=== PATIENT | male | born 1975 | race African-American/Black ===

== ENCOUNTER 2018-06-28 20:37 | Emergency (ER) | payer BC ==
[~2018-06-28] VITALS: Ht 182.9 cm; Wt 124.3 kg
[~2018-06-28 20:37] MED LIST: ASPI325T8 PO
[2018-06-28 20:49] VITALS: BP 143/85
[2018-06-28] MEDS ORDERED: DICL50TA4 PO (22:17)
[2018-06-28] MEDS ORDERED: METH4TAB2 PO (22:17)
--- NOTE | 2018-06-28 22:18 | PHYS DOC ---
Past Medical History Past Medical History: Hypertension Past Surgical History: No Surgical History Alcohol Use: None Drug Use: Marijuana Adult General Chief Complaint Chief Complaint: KNEE INJURY HPI HPI Patient is a 43 year old male with history of hypertension who presents today with complaints of generalized 9 out of 10 right knee pain that has been going on intermittently for 1 month. Patient states the pain is worse when he stands on his feet for long hours. Patient denies any known injury. Patient denies taking anything to help with this pain. He states occasionally after standing for too long his knee walking and sometimes become numb. He states the numbness goes away when he starts moving around. Patient denies any use of hormones, denies any recent hospitalization, denies any chest pain or shortness of breath , denies any recent surgery, denies any personal family history of DVTs. Review of Systems Review of Systems Constitutional: Denies fever or chills [] Eyes: Denies change in visual acuity, redness, or eye pain [] HENT: Denies nasal congestion or sore throat [] Respiratory: Denies cough or shortness of breath [] Cardiovascular: No additional information not addressed in HPI [] GI: Denies abdominal pain, nausea, vomiting, bloody stools or diarrhea [] : Denies dysuria or hematuria [] Musculoskeletal: Reports right knee pain Integument: Denies rash or skin lesions [] Neurologic: Denies headache, focal weakness or sensory changes [] All other systems were reviewed and found to be within normal limits, except as documented in this note. Allergies Allergies Allergies Coded Allergies Type Severity Reaction Last Updated Verified No Known Drug Allergies 01/04/14 No Physical Exam Physical Exam Constitutional: Well developed, well nourished, no acute distress, non-toxic appearance. [] HENT: Normocephalic, atraumatic, bilateral external ears normal, oropharynx moist, no oral exudates, nose normal. [] Eyes: PERRLA, EOMI, conjunctiva normal, no discharge. [] Neck: Normal range of motion, no tenderness, supple, no stridor. [] Cardiovascular:Heart rate regular rhythm, no murmur [] Lungs & Thorax: Bilateral breath sounds clear to auscultation [] Abdomen: Bowel sounds normal, soft, no tenderness, no masses, no pulsatile masses. [] Skin: Warm, dry, no erythema, no rash. [] Back: No tenderness, no CVA tenderness. [] Extremities: Overweight patient. Right knee with no obvious deformity, no tenderness on exam, full range of motion to the right knee, negative Wyatt sign negative Daisy's sign negative anterior-posterior drawer sign to the right lower extremity. +2 right pedal pulse. Cap refill less than 2 seconds the right lower extremity. Negative Homans sign to the right lower extremity. Neurologic: Alert and oriented X 3, normal motor function, normal sensory function, no focal deficits noted. [] Psychologic: Affect normal, judgement normal, mood normal. [] Current Patient Data Vital Signs Vital Signs Date Time Temp Pulse Resp B/P (MAP) Pulse Ox O2 Delivery O2 Flow Rate FiO2 06/28/18 20:49 97.8 69 14 143/85 (104) 98 Room Air 97.8 EKG EKG [] Radiology/Procedures Radiology/Procedures [] Course & Med Decision Making Course & Med Decision Making Pertinent Labs and Imaging studies reviewed. (See chart for details) This is a 43-year-old male patient presented to the ED today with right knee pain, no known injury. Right knee x-rays interpreted by Dr. Karissa arce negative for any acute findings. Patient was discharged with diclofenac and Medrol dosepak. Ice elevation encouraged. Provided orthopedic doctor for follow-up as an outpatient. Provided return precautions and discharged in stable condition. Staff Physician Addendum: I was working in the ER during the course of this patient's visit. I was available for consultation as needed, but I was not directly involved in the care of this patient. Dragon Disclaimer Dragon Disclaimer This electronic medical record was generated, in whole or in part, using a voice recognition dictation system. Departure Departure Impression: Primary Impression: Right knee pain Disposition: HOME, SELF-CARE Condition: STABLE Referrals: UNKNOWN PCP NAME (PCP) ASA CLARKE MD Patient Instructions: Knee Pain, [id number] Additional Instructions: You were evaluated in the emergency room for right knee pain. Ice elevate the extremity. Take the prescribed medications as ordered. Follow-up with the provided orthopedic doctor in the next 1 week if pain continues. Scripts Methylprednisolone (MEDROL) 4 Mg Tab.ds.pk 1 PKG PO UD, #1 PKG Prov: DARWIN SALGUERO [facility] 06/28/18 Diclofenac Sodium (DICLOFENAC SODIUM) 50 Mg Tablet.dr 1 TAB PO BID, #20 TAB 0 Refills Prov: DARWIN SALUGERO APRN 06/28/18 Problem Qualifiers Primary Impression: Right knee pain Chronicity: acute Qualified Codes: M25.561 - Pain in right knee JUNAIDDARWIN MATA DINA Jun 28, 2018 22:18 BEULAH CONDE MD Jun 29, 2018 05:01
--- NOTE | 2018-06-29 08:57 | RAD ---
Right knee radiograph 06/28/2018 9:07 PM INDICATION: Pain and swelling COMPARISON: None available TECHNIQUE: 4 views of the right knee are provided. FINDINGS: There is no acute fracture or dislocation. There is no knee joint effusion. Bone mineralization is within normal limits. Joint spaces are maintained. Regional soft tissues are within normal limits. There is no soft tissue gas or osseous erosion. IMPRESSION: No acute fracture or dislocation. Electronically signed by: Mia Arhculeta MD (06/29/2018 8:54 AM) [id number]
== END 2018-06-28 23:12 | disposition home or self-care (01) ==
LOC: ER 20:37
DX: M25.561 Pain in right knee (principal); R20.0 Anesthesia of skin; I10 Essential (primary) hypertension; E66.3 Overweight; Z68.37 Body mass index [BMI] 37.0-37.9, adult
CPT/HCPCS: 73564; 99284

== ENCOUNTER 2018-10-31 23:40 | Emergency (ER) | payer BC ==
[~2018-10-31] VITALS: Ht 182.9 cm; Wt 127.0 kg
[~2018-10-31 23:40] MED LIST changes: +DICL50TA4 PO; +METH4TAB2 PO
[2018-11-01 00:15] LABS: BILIRUBIN,URINE NEGATIVE (NEG); CLARITY,URINE CLEAR; COLOR,URINE YELLOW; NITRITE,URINE NEGATIVE (NEG); PH,URINE 5.5; PROTEIN,URINE NEGATIVE (NEG-TRACE)
[2018-11-01 00:19] LABS: BACTERIA,URINE 0 /HPF (0-FEW); RBC,URINE OCC /HPF (0-2); WBC,URINE OCC /HPF (0-4)
[2018-11-01 00:20] LABS: SQUAMOUS EPITHELIAL CELL,UR OCC /LPF
[2018-11-01 00:25] LABS: BASO # 0.1 x10^3/uL (0.0-0.2); BASO % 1 % (0-3); EOS # 0.3 x10^3/uL (0.0-0.7); EOS % 4 % (0-3); HEMATOCRIT 42.7 % (39.0-53.0); HEMOGLOBIN 14.9 g/dL (13.0-17.5); LYMPH # 3.1 x10^3/uL (1.0-4.8); LYMPH % 38 % (24-48); MEAN CORPUSCULAR HEMOGLOBIN 28 pg (25-35); MEAN CORPUSCULAR HGB CONC 35 g/dL (31-37); MEAN CORPUSCULAR VOLUME 80 fL (79-100); MONO # 0.7 x10^3/uL (0.0-1.1); MONO % 8 % (0-9); NEUT % 49 % (31-73); PLATELET COUNT 211 x10^3/uL (140-400); RED BLOOD COUNT 5.32 x10^6/uL (4.30-5.70); RED CELL DISTRIBUTION WIDTH 15.7 % (11.5-14.5); WHITE BLOOD COUNT 8.2 x10^3/uL (4.0-11.0)
[2018-11-01] MEDS: LABETALOL 20 MG/4 ML DISP.SYRIN. IVP ONE (00:28)
[2018-11-01] MEDS: ONDANSETRON PF 4 MG/2 ML VIAL. IV ONE (00:29)
[2018-11-01] MEDS: cloNIDine HCL 0.1 MG TABLET PO ONE ×2 (00:29→03:05)
[2018-11-01] MEDS: fentaNYL PF VIAL 100 MCG/2 ML VIAL IV ONE (00:29)
[2018-11-01 00:31] LABS: AMPHETAMINE/METHAMPHETAMINE POS (NEG); BARBITURATES NEG (NEG); BENZODIAZEPINES NEG (NEG); CANNABINOIDS POS (NEG); COCAINE NEG (NEG); METHADONE NEG (NEG); OPIATES NEG (NEG); PHENCYCLIDINE NEG (NEG)
[2018-11-01 00:34] LABS: CALCIUM 8.9 mg/dL (8.5-10.1); CREATININE 1.2 mg/dL (0.7-1.3); GFR 80.3; POTASSIUM 3.4 mmol/L (3.5-5.1)
[2018-11-01 00:40] LABS: ALBUMIN 3.6 g/dL (3.4-5.0); ALBUMIN/GLOBULIN RATIO 0.9 (1.0-1.7); TOTAL BILIRUBIN 0.4 mg/dL (0.2-1.0); TOTAL PROTEIN 7.4 g/dL (6.4-8.2)
[2018-11-01] MEDS ORDERED: CONTRAST GIVEN. MC PRN (01:00)
[2018-11-01] MEDS ORDERED: IOHEXOL 300 MG/ML 100ML VIAL. IV ONE (01:30)
--- NOTE | 2018-11-01 02:35 | RAD ---
INDICATION: LT FLANK PAIN,
LARGE BODY HABITUS, PT ATE LAST 6:30PM COMPARISON: None. TECHNIQUE: Grayscale and color ultrasound images obtained through the abdomen. FINDINGS: Aorta/IVC: Not well seen Pancreas: Not well seen Liver: There is some heterogenous echotexture. Gallbladder: There are some internal echoes seen within the gallbladder. Common Bile Duct: 5 mm Right Kidney: No hydronephrosis. Left Kidney: Difficult to visualize but no definite hydronephrosis. Echogenic focus within which could be from a calcification or nonobstructive stone. Spleen: Not well seen IMPRESSION: 1. Limited exam secondary to overlying structures obscuring. 2. There are some internal echoes suspected within the gallbladder. Could be sludge or small stones. 3. No common bile duct dilation. Electronically signed by: Leonardo Doe MD (11/01/2018 2:29 AM) [facility]
[2018-11-01] MEDS ORDERED: ONDA4TAB7 PO (03:10)
[2018-11-01] MEDS ORDERED: FAMO-63 PO (03:10)
[2018-11-01 03:16] VITALS: BP 136/90
--- NOTE | 2018-11-01 03:22 | PHYS DOC ---
Past Medical History Past Medical History: Hypertension Past Surgical History: No Surgical History Alcohol Use: None Drug Use: Marijuana Social History Narrative: Marijuana use daily, last use 2300 Adult General Chief Complaint Chief Complaint: FLANK PAIN HPI HPI Patient is a 43 year old male with history of hypertension, obstructive sleep apnea and polysubstance abuse who presents with epigastric pain, nausea and vomiting starting 1-2 hour prior to ED arrival. Patient with multiple episodes of emesis. Patient also pain rating to left shoulder. Denies fever, cough, hematemesis, coffee-ground emesis. No flank pain, back pain. No constipation or diarrhea. Patient acknowledges smoking marijuana and additional drug use. Denies current alcohol. Patient's blood pressure noted to be elevated at triage. 180/110. States she is compliant with his blood pressure medications. [] Review of Systems Review of Systems Review of systems as per history of present illness. All other review symptoms are negative. All other systems were reviewed and found to be within normal limits, except as documented in this note. Current Medications Current Medications Current Medications Medications (Trade) Dose Ordered Sig/Noah Start Time Stop Time Status Last Admin Dose Admin Clonidine HCl (Catapres) 0.2 mg 1X ONCE 11/01/18 02:00 11/01/18 02:01 DC 11/01/18 03:05 0.2 MG Fentanyl Citrate (Fentanyl 2ml Vial) 75 mcg 1X ONCE 11/01/18 00:30 11/01/18 00:31 DC 11/01/18 00:29 75 MCG Info (CONTRAST GIVEN -- Rx MONITORING) 1 each PRN DAILY PRN 11/01/18 01:00 11/03/18 00:59 Iohexol (Omnipaque 300 Mg/ml) 100 ml 1X ONCE 11/01/18 01:30 11/01/18 01:31 DC Labetalol HCl (Normodyne Iv Push) 20 mg 1X ONCE 11/01/18 00:30 11/01/18 00:31 DC 11/01/18 00:28 20 MG Ondansetron HCl (Zofran) 4 mg 1X ONCE 11/01/18 00:30 11/01/18 00:31 DC 11/01/18 00:29 4 MG Allergies Allergies Allergies Coded Allergies Type Severity Reaction Last Updated Verified No Known Drug Allergies 01/04/14 No Physical Exam Physical Exam Constitutional: Well developed, well nourished, moderate discomfort secondary to pain. Smells of her a lot of smoke.[] HENT: Normocephalic, atraumatic, bilateral external ears normal, oropharynx moist, no oral exudates, nose normal. [] Eyes: PERRLA, EOMI, conjunctiva hazy, injected. [] Neck: Normal range of motion, no tenderness, supple, no stridor. [] Cardiovascular:Heart rate regular rhythm, no murmur [] Lungs & Thorax: Bilateral breath sounds clear to auscultation [] Abdomen: Bowel sounds normal, soft, left upper quadrant/epigastric pain, tenderness, obesity compromising exam.. [] Skin: Warm, dry, no erythema, no rash. [] Back: No tenderness. [] Extremities: No tenderness, no edema. [] Neurologic: Alert and oriented X 3, normal motor function, normal sensory function, no focal deficits noted. [] Psychologic: Affect normal, judgement normal, mood normal. [] Current Patient Data Vital Signs Vital Signs Date Time Temp Pulse Resp B/P (MAP) Pulse Ox O2 Delivery O2 Flow Rate FiO2 11/01/18 03:05 71 157/100 11/01/18 02:46 95 Room Air 11/01/18 00:29 18 10/31/18 23:45 98.5 98.5 Lab Values Laboratory Tests Test 10/31/18 23:45 11/01/18 00:01 Urine Collection Type Unknown Urine Color Yellow Urine Clarity Clear Urine pH 5.5 Urine Specific [place] 1.020 Urine Protein Negative mg/dL (NEG-TRACE) Urine Glucose (UA) Negative mg/dL (NEG) Urine Ketones (Stick) Negative mg/dL (NEG) Urine Blood Negative (NEG) Urine Nitrite Negative (NEG) Urine Bilirubin Negative (NEG) Urine Urobilinogen Dipstick 1.0 mg/dL (0.2 mg/dL) Urine Leukocyte Esterase Negative (NEG) Urine RBC Occ /HPF (0-2) Urine WBC Occ /HPF (0-4) Urine Squamous Epithelial Cells Occ /LPF Urine Bacteria 0 /HPF (0-FEW) Urine Mucus Mod /LPF Urine Opiates Screen Neg (NEG) Urine Methadone Screen Neg (NEG) Urine Barbiturates Neg (NEG) Urine Phencyclidine Screen Neg (NEG) Urine Amphetamine/Methamphetamine Pos (NEG) Urine Benzodiazepines Screen Neg (NEG) Urine Cocaine Screen Neg (NEG) Urine Cannabinoids Screen Pos (NEG) Urine Ethyl Alcohol Neg (NEG) White Blood Count 8.2 x10^3/uL (4.0-11.0) Red Blood Count 5.32 x10^6/uL (4.30-5.70) Hemoglobin 14.9 g/dL (13.0-17.5) Hematocrit 42.7 % (39.0-53.0) Mean Corpuscular Volume 80 fL (79-100) Mean Corpuscular Hemoglobin 28 pg (25-35) Mean Corpuscular Hemoglobin Concent 35 g/dL (31-37) Red Cell Distribution Width 15.7 % (11.5-14.5) H Platelet Count 211 x10^3/uL (140-400) Neutrophils (%) (Auto) 49 % (31-73) Lymphocytes (%) (Auto) 38 % (24-48) Monocytes (%) (Auto) 8 % (0-9) Eosinophils (%) (Auto) 4 % (0-3) H Basophils (%) (Auto) 1 % (0-3) Neutrophils # (Auto) 4.0 x10^3uL (1.8-7.7) Lymphocytes # (Auto) 3.1 x10^3/uL (1.0-4.8) Monocytes # (Auto) 0.7 x10^3/uL (0.0-1.1) Eosinophils # (Auto) 0.3 x10^3/uL (0.0-0.7) Basophils # (Auto) 0.1 x10^3/uL (0.0-0.2) Sodium Level 140 mmol/L (136-145) Potassium Level 3.4 mmol/L (3.5-5.1) L Chloride Level 104 mmol/L (98-107) Carbon Dioxide Level 28 mmol/L (21-32) Anion Gap 8 (6-14) Blood Urea Nitrogen 18 mg/dL (8-26) Creatinine 1.2 mg/dL (0.7-1.3) Estimated GFR (Cockcroft-Gault) 80.3 BUN/Creatinine Ratio 15 (6-20) Glucose Level 97 mg/dL (70-99) Calcium Level 8.9 mg/dL (8.5-10.1) Total Bilirubin 0.4 mg/dL (0.2-1.0) Aspartate Amino Transferase (AST) 17 U/L (15-37) Alanine Aminotransferase (ALT) 30 U/L (16-63) Alkaline Phosphatase 56 U/L (46-116) Troponin I Quantitative < 0.017 ng/mL (0.000-0.055) SU-Ewt-M-Type Natriuretic Peptide 47 pg/mL (0-124) Total Protein 7.4 g/dL (6.4-8.2) Albumin 3.6 g/dL (3.4-5.0) Albumin/Globulin Ratio 0.9 (1.0-1.7) L Lipase 869 U/L (73-393) H Ethyl Alcohol Level < 10 mg/dL (0-10) Laboratory Tests 11/01/18 00:01 Laboratory Tests 11/01/18 00:01 EKG EKG [EKG: Reviewed nondiagnostic] Interpretation Time: . Radiology/Procedures Radiology/Procedures Chest x-ray: No obvious acute disease[] Course & Med Decision Making Course & Med Decision Making Pertinent Labs and Imaging studies reviewed. (See chart for details) [Patient with nondescript upper abdominal pain, tenderness, sorry to hypertension setting of recent drug use. No vomiting in the emergency department. Abdomen remained soft, nonsurgical. CT abdomen and pelvis ordered and declined by patient stating he has claustrophobia despite an anxiety medication being offered.Lipase elevated, gallbladder ultrasound, shows biliary sludge without evidence of acute cholecystitis. Presence of THC and amphetamines noted to be present in urine likely explaining her continuing to hypertension. Blood pressure improved with treatment. No chest pain, shortness of breath palpitations. Repeat blood pressure medication given. Patient resting comfortably. Recommend supportive care, and close PCP follow-up for reevaluation , pain and blood pressure. Patient instructed to avoid additional drug use.] Dragon Disclaimer Dragon Disclaimer This electronic medical record was generated, in whole or in part, using a voice recognition dictation system. Departure Departure Impression: Primary Impression: Accelerated hypertension Additional Impressions: Epigastric pain Nausea Disposition: HOME, SELF-CARE Condition: GOOD Patient Instructions: Abdominal Pain (Nonspecific), Nausea, Adult, [id number] , Hypertension Additional Instructions: You were evaluated in the emergency department for abdominal pain. Lab work and imaging studies were performed. The exact cause serious symptoms. The cause of your symptoms has not been determined, but may be possibly related to gallbladder disease, pancreatitis or gastritis. Please worried fatty foods, started she foods, alcohol and drug use. Take nausea medication and acidosis directed and follow-up with local primary care physician for further evaluation and management of a pressure. In the meantime, if you develop new or worsening symptoms, return to the ED. Scripts Ondansetron Hcl (ZOFRAN) 4 Mg Tablet 1 TAB PO Q6HRS, #10 TAB 0 Refills Prov: CYNDIE BELL DO 11/01/18 Famotidine (PEPCID) 20 Mg Tablet 20 MG PO BID, #20 TAB Prov: CYNDIE BELL DO 11/01/18 Problem Qualifiers CYNDIE BELL DO Nov 01, 2018 03:22
--- NOTE | 2018-11-01 06:05 | EKG ---
[facility] [address] [place] [address] Test Date: 2018-10-31 Test Time: 23:52:17 Pat Name: JUVENTINO MARKS Department: Room: Gender: M Dinkey Skinner: : 1975 Requested By: CYNDIE BELL Order Number: [id number] Reading MD: Measurements Intervals Bishop Rate: 72 P: 32 UT: 166 QRS: -38 QRSD: 102 T: 14 QT: 402 QTc: 442 Interpretive Statements SINUS RHYTHM ABNORMAL LEFT AXIS DEVIATION LEFT ANTERIOR FASCICULAR BLOCK ABNORMAL ECG RI6.01 No previous ECG available for comparison
--- NOTE | 2018-11-01 08:15 | RAD ---
Portable chest, 10/31/2018: HISTORY: Chest, epigastric pain Comparison is made to a study from 02/10/2015. The heart size and pulmonary vascularity are normal. There is tortuosity of the thoracic aorta. No pulmonary infiltrate is seen. There is no evidence of pleural fluid. IMPRESSION: No acute cardiopulmonary abnormality is detected. Electronically signed by: Herber Cardona MD (11/01/2018 8:10 AM) [facility]
== END 2018-11-01 03:35 | disposition home or self-care (01) ==
LOC: ER 23:40
DX: R10.13 Epigastric pain (principal); I10 Essential (primary) hypertension; R11.2 Nausea with vomiting, unspecified; R10.12 Left upper quadrant pain; F12.20 Cannabis dependence, uncomplicated; E66.9 Obesity, unspecified; Z68.38 Body mass index [BMI] 38.0-38.9, adult
CPT/HCPCS: 36415; 71045; 76700; 80053; 80307; 81001; 83690; 83880; 84484; 85025; 93005; 96374; 96375; 99284; G0480; J2405; J3010; J3490

== ENCOUNTER 2019-01-27 12:34 | Inpatient (IN) | payer BC ==
[~2019-01-27] VITALS: Ht 182.9 cm; Wt 129.4 kg
[~2019-01-27 12:34] MED LIST changes: +FAMO-63 PO; +ONDA4TAB7 PO
[2019-01-27] MEDS ORDERED: IV NORMAL SALINE 1000ML BAG 1,000 ML IV SCH (12:52)
[2019-01-27] MEDS ORDERED: ONDANSETRON PF 4 MG/2 ML VIAL. IV ONE (13:00)
[2019-01-27] MEDS ORDERED: KETOROLAC 30 MG/ML VIAL. IV ONE (13:00)
--- NOTE | 2019-01-27 13:19 | PHYS DOC ---
Past Medical History Past Medical History: Hypertension Past Surgical History: No Surgical History Alcohol Use: None Drug Use: Marijuana Adult General Chief Complaint Chief Complaint: ABDOMINAL PAIN HPI HPI Patient is a 43 year old male who presents with complaining of nausea and vomiting and diarrhea. Patient complaining of one episode of vomiting and 3-4 episodes of diarrhea with string of blood since yesterday with generalized abdominal cramping pain that getting worse during episodes of diarrhea. The patient denies anorexia, fever and chills, urinary symptom, sick contact. Patient states he had the same episode of abdominal pain and nausea and vomiting unremarkable evaluation. Review of Systems Review of Systems Constitutional: Denies fever or chills [] Eyes: Denies change in visual acuity, redness, or eye pain [] HENT: Denies nasal congestion or sore throat [] Respiratory: Denies cough or shortness of breath [] Cardiovascular: No additional information not addressed in HPI [] GI: Reports abdominal pain, nausea, vomiting, bloody stools or diarrhea [] : Denies dysuria or hematuria [] Musculoskeletal: Denies back pain or joint pain [] Integument: Denies rash or skin lesions [] Neurologic: Denies headache, focal weakness or sensory changes [] Endocrine: Denies polyuria or polydipsia [] All other systems were reviewed and found to be within normal limits, except as documented in this note. Current Medications Current Medications Current Medications Medications (Trade) Dose Ordered Sig/Noah Start Time Stop Time Status Last Admin Dose Admin Famotidine (Pepcid Vial) 20 mg 1X ONCE 01/27/19 14:30 01/27/19 14:31 DC 01/27/19 14:30 20 MG Fentanyl Citrate (Fentanyl 2ml Vial) 50 mcg 1X ONCE 01/27/19 15:15 01/27/19 15:16 DC 01/27/19 15:15 50 MCG Info (CONTRAST GIVEN -- Rx MONITORING) 1 each PRN DAILY PRN 01/27/19 15:00 01/29/19 14:59 Iohexol (Omnipaque 300 Mg/ml) 75 ml 1X ONCE 01/27/19 15:00 01/27/19 15:01 DC Ketorolac Tromethamine (Toradol 30mg Vial) 30 mg 1X ONCE 01/27/19 13:00 01/27/19 13:01 DC 01/27/19 13:00 30 MG Ondansetron HCl (Zofran) 4 mg 1X ONCE 01/27/19 13:00 01/27/19 13:01 DC 01/27/19 13:00 4 MG Sodium Chloride 1,000 ml @ 1,000 mls/hr Q1H 01/27/19 12:52 01/27/19 13:51 DC 01/27/19 12:52 1,000 MLS/HR Allergies Allergies Allergies Coded Allergies Type Severity Reaction Last Updated Verified No Known Drug Allergies 01/04/14 No Physical Exam Physical Exam Constitutional: Well developed, well nourished, no acute distress, non-toxic appearance, morbidly obese. [] HENT: Normocephalic, atraumatic, oropharynx moist. Eyes: PERRLA, EOMI, conjunctiva normal, no discharge. [] Neck: Normal range of motion, no tenderness, supple, no stridor. [] Cardiovascular:Heart rate regular rhythm, no murmur [] Lungs & Thorax: Bilateral breath sounds clear to auscultation [] Abdomen: Bowel sounds normal, soft, no tenderness, no masses, no pulsatile masses. [] Skin: Warm, dry, no erythema, no rash. [] Back: No tenderness, no CVA tenderness. [] Extremities: No tenderness, no cyanosis, no clubbing, ROM intact, no edema. [] Neurologic: Alert and oriented X 3, normal motor function, normal sensory function, no focal deficits noted. [] Psychologic: Affect normal, judgement normal, mood normal. [] Current Patient Data Vital Signs Vital Signs Date Time Temp Pulse Resp B/P (MAP) Pulse Ox O2 Delivery O2 Flow Rate FiO2 01/27/19 15:15 16 98 Room Air 01/27/19 14:45 72 149/82 (104) 01/27/19 12:48 98.1 98.1 Lab Values Laboratory Tests Test 01/27/19 13:17 01/27/19 13:27 White Blood Count 7.0 x10^3/uL (4.0-11.0) Red Blood Count 5.54 x10^6/uL (4.30-5.70) Hemoglobin 14.6 g/dL (13.0-17.5) Hematocrit 44.7 % (39.0-53.0) Mean Corpuscular Volume 81 fL (79-100) Mean Corpuscular Hemoglobin 26 pg (25-35) Mean Corpuscular Hemoglobin Concent 33 g/dL (31-37) Red Cell Distribution Width 16.3 % (11.5-14.5) H Platelet Count 216 x10^3/uL (140-400) Neutrophils (%) (Auto) 49 % (31-73) Lymphocytes (%) (Auto) 34 % (24-48) Monocytes (%) (Auto) 7 % (0-9) Eosinophils (%) (Auto) 9 % (0-3) H Basophils (%) (Auto) 1 % (0-3) Neutrophils # (Auto) 3.5 x10^3uL (1.8-7.7) Lymphocytes # (Auto) 2.4 x10^3/uL (1.0-4.8) Monocytes # (Auto) 0.5 x10^3/uL (0.0-1.1) Eosinophils # (Auto) 0.6 x10^3/uL (0.0-0.7) Basophils # (Auto) 0.1 x10^3/uL (0.0-0.2) Sodium Level 141 mmol/L (136-145) Potassium Level 3.7 mmol/L (3.5-5.1) Chloride Level 103 mmol/L (98-107) Carbon Dioxide Level 28 mmol/L (21-32) Anion Gap 10 (6-14) Blood Urea Nitrogen 13 mg/dL (8-26) Creatinine 1.0 mg/dL (0.7-1.3) Estimated GFR (Cockcroft-Gault) 99.2 BUN/Creatinine Ratio 13 (6-20) Glucose Level 103 mg/dL (70-99) H Calcium Level 9.0 mg/dL (8.5-10.1) Total Bilirubin 0.8 mg/dL (0.2-1.0) Aspartate Amino Transferase (AST) 17 U/L (15-37) Alanine Aminotransferase (ALT) 27 U/L (16-63) Alkaline Phosphatase 55 U/L (46-116) Total Protein 7.4 g/dL (6.4-8.2) Albumin 3.8 g/dL (3.4-5.0) Albumin/Globulin Ratio 1.1 (1.0-1.7) Lipase 872 U/L (73-393) H Urine Collection Type Unknown Urine Color Yellow Urine Clarity Clear Urine pH 6.0 Urine Specific [place] 1.020 Urine Protein Negative mg/dL (NEG-TRACE) Urine Glucose (UA) Negative mg/dL (NEG) Urine Ketones (Stick) Negative mg/dL (NEG) Urine Blood Negative (NEG) Urine Nitrite Negative (NEG) Urine Bilirubin Negative (NEG) Urine Urobilinogen Dipstick 0.2 mg/dL (0.2 mg/dL) Urine Leukocyte Esterase Negative (NEG) Urine RBC 3-5 /HPF (0-2) Urine WBC 1-4 /HPF (0-4) Urine Squamous Epithelial Cells Few /LPF Urine Bacteria 0 /HPF (0-FEW) Urine Hyaline Casts Few /HPF Urine Mucus Marked /LPF Urine Opiates Screen Neg (NEG) Urine Methadone Screen Neg (NEG) Urine Barbiturates Neg (NEG) Urine Phencyclidine Screen Neg (NEG) Urine Amphetamine/Methamphetamine Neg (NEG) Urine Benzodiazepines Screen Neg (NEG) Urine Cocaine Screen Neg (NEG) Urine Cannabinoids Screen Pos (NEG) Urine Ethyl Alcohol Neg (NEG) Laboratory Tests 01/27/19 13:17 Laboratory Tests 01/27/19 13:17 EKG EKG [] Radiology/Procedures Radiology/Procedures [] Course & Med Decision Making Course & Med Decision Making Pertinent Labs reviewed. (See chart for details) Evaluation of patient in ER showed 43-year-old male patient with complaining of nausea and vomiting and diarrhea and abdominal pain. Patient had elevation of lipase and refused to have CT of abdomen and pelvis because of claustrophobic. Plan to admit patient with diagnosis of acute pancreatitis with pending gallbladder ultrasound. Dragon Disclaimer Dragon Disclaimer This electronic medical record was generated, in whole or in part, using a voice recognition dictation system. Departure Departure Impression: Primary Impression: Acute pancreatitis Additional Impression: Renal insufficiency Disposition: 09 ADMITTED INPATIENT (at 1537) Admitting Physician: Kassandra Nova (accepted admission at 1536) Condition: IMPROVED Referrals: IVY ARAUZ MD (PCP) Problem Qualifiers MACY HARRIS MD Jan 27, 2019 13:19
[2019-01-27 13:36] LABS: BASO # 0.1 x10^3/uL (0.0-0.2); BASO % 1 % (0-3); EOS # 0.6 x10^3/uL (0.0-0.7); EOS % 9 % (0-3); HEMATOCRIT 44.7 % (39.0-53.0); HEMOGLOBIN 14.6 g/dL (13.0-17.5); LYMPH # 2.4 x10^3/uL (1.0-4.8); LYMPH % 34 % (24-48); MEAN CORPUSCULAR HEMOGLOBIN 26 pg (25-35); MEAN CORPUSCULAR HGB CONC 33 g/dL (31-37); MEAN CORPUSCULAR VOLUME 81 fL (79-100); MONO # 0.5 x10^3/uL (0.0-1.1); MONO % 7 % (0-9); NEUT # 3.5 x10^3uL (1.8-7.7); NEUT % 49 % (31-73); PLATELET COUNT 216 x10^3/uL (140-400); RED BLOOD COUNT 5.54 x10^6/uL (4.30-5.70); RED CELL DISTRIBUTION WIDTH 16.3 % (11.5-14.5)
[2019-01-27 13:37] LABS: GFR 99.2; POTASSIUM 3.7 mmol/L (3.5-5.1)
[2019-01-27 13:39] LABS: BILIRUBIN,URINE NEGATIVE (NEG); CLARITY,URINE CLEAR; COLOR,URINE YELLOW; NITRITE,URINE NEGATIVE (NEG); PROTEIN,URINE NEGATIVE (NEG-TRACE); UROBILINOGEN,URINE 0.2 mg/dL (0.2 mg/dL)
[2019-01-27 13:43] LABS: ALBUMIN 3.8 g/dL (3.4-5.0); ALBUMIN/GLOBULIN RATIO 1.1 (1.0-1.7); TOTAL BILIRUBIN 0.8 mg/dL (0.2-1.0); TOTAL PROTEIN 7.4 g/dL (6.4-8.2)
[2019-01-27 13:45] LABS: AMPHETAMINE/METHAMPHETAMINE NEG (NEG); BARBITURATES NEG (NEG); BENZODIAZEPINES NEG (NEG); CANNABINOIDS POS (NEG); COCAINE NEG (NEG); METHADONE NEG (NEG); OPIATES NEG (NEG); PHENCYCLIDINE NEG (NEG)
[2019-01-27 13:55] LABS: HYALINE CASTS, URINE FEW /HPF; SQUAMOUS EPITHELIAL CELL,UR FEW /LPF
[2019-01-27 13:56] LABS: BACTERIA,URINE 0 /HPF (0-FEW)
[2019-01-27] MEDS ORDERED: FAMOTIDINE 20 MG/2 ML VIAL IVP ONE (14:30)
[2019-01-27] MEDS ORDERED: CONTRAST GIVEN. MC PRN (15:00)
[2019-01-27] MEDS ORDERED: IOHEXOL 300 MG/ML 100ML VIAL. IV ONE (15:00)
[2019-01-27] MEDS ORDERED: fentaNYL PF VIAL 100 MCG/2 ML VIAL IV ONE (15:15)
[2019-01-27] MEDS: IV NORMAL SALINE 1000ML BAG 1,000 ML IV SCH ×2 (16:16→22:59)
[2019-01-27] MEDS ORDERED: fentaNYL PF VIAL 100 MCG/2 ML VIAL IV PRN (17:30)
[2019-01-27] MEDS ORDERED: ONDANSETRON PF 4 MG/2 ML VIAL. IV PRN (17:30)
[2019-01-27] MEDS ORDERED: LABETALOL 20 MG/4 ML DISP.SYRIN. IVP PRN (18:30)
--- NOTE | 2019-01-27 18:33 | PDOC1 ---
History and Physical Date of Admission Date of Admission DATE: 01/27/19 TIME: 18:26 Identification/Chief Complaint Chief Complaint acute abdominal pain, nausea Source Source: Chart review, Patient History of Present Illness History of Present Illness Mr. Aragon, is a 43 year old male admit with acute abd pain. He had diarrhea yesterday (3 or 4 times), nausea markedly bad this AM, he vomited once today, and has no diarrhea in the past 24 hours. he has had acute abd cramps, and pain, pain better now. Past Medical History Cardiovascular: HTN Pulmonary: No pertinent hx GI: No pertinent hx Heme/Onc: No pertinent hx Hepatobiliary: No pertinent hx Psych: No pertinent hx Renal/: No pertinent hx Social History Smoke: No ALCOHOL: social Drugs: None Current Problem List Problem List Problems Medical Problems: (1) Acute pancreatitis Status: Acute (2) Renal insufficiency Status: Acute Current Medications Current Medications Current Medications Sodium Chloride 1,000 ml @ 1,000 mls/hr Q1H IV Last administered on 01/27/19at 12:52; Start 01/27/19 at 12:52; Stop 01/27/19 at 13:51; Status DC Ondansetron HCl (Zofran) 4 mg 1X ONCE IV Last administered on 01/27/19at 13:00 ; Start 01/27/19 at 13:00; Stop 01/27/19 at 13:01; Status DC Ketorolac Tromethamine (Toradol 30mg Vial) 30 mg 1X ONCE IV Last administered on 01/27/19at 13:00; Start 01/27/19 at 13:00; Stop 01/27/19 at 13:01; Status DC Famotidine (Pepcid Vial) 20 mg 1X ONCE IVP Last administered on 01/27/19at 14: 30; Start 01/27/19 at 14:30; Stop 01/27/19 at 14:31; Status DC Iohexol (Omnipaque 300 Mg/ml) 75 ml 1X ONCE IV ; Start 01/27/19 at 15:00; Stop 01/27/19 at 15:01; Status DC Info (CONTRAST GIVEN -- Rx MONITORING) 1 each PRN DAILY PRN MC SEE COMMENTS; Start 01/27/19 at 15:00; Stop 01/29/19 at 14:59 Fentanyl Citrate (Fentanyl 2ml Vial) 50 mcg 1X ONCE IV Last administered on at 15:15; Start 01/27/19 at 15:15; Stop 01/27/19 at 15:16; Status DC Sodium Chloride 1,000 ml @ 150 mls/hr Q6H40M IV Last administered on at 16:16; Start 01/27/19 at 15:38; Stop 01/28/19 at 15:37 Ondansetron HCl (Zofran) 4 mg PRN Q8HRS PRN IV NAUSEA/VOMITING; Start 01/27/19 at 17:30 Fentanyl Citrate (Fentanyl 2ml Vial) 50 mcg PRN Q2HR PRN IV PAIN; Start at 17:30 Active Scripts Active Zofran (Ondansetron Hcl) 4 Mg Tablet 1 Tab PO Q6HRS Pepcid (Famotidine) 20 Mg Tablet 20 Mg PO BID Medrol (Methylprednisolone) 4 Mg Tab.ds.pk 1 Pkg PO UD Diclofenac Sodium 50 Mg Tablet.dr 1 Tab PO BID Reported Aspirin 325 Mg Tablet 1 Tab PO DAILY Allergies Allergies: Coded Allergies: No Known Drug Allergies (Unverified , 01/04/14) ROS General: YES: Chills, Fatigue; No: Night Sweats, Malaise, Appetite, Other PSYCHOLOGICAL ROS: No: Anxiety, Behavioral Disorder, Concentration difficultie , Decreased libido, Depression, Disorientation, Hallucinations, Hostility, Irritablity, Memory difficulties, Mood Swings, Obsessive thoughts, Other Eyes: No Blurry vision, No Decreased vision, No Double vision, No Dry eyes, No Excessive tearing, No Eye Pain, No Itchy Eyes, No Loss of vision, No Photophobia , No Scotomata, No Uses contacts, No Uses glasses, No Other HEENT: No: Heacaches, Visual Changes, Hearing change, Nasal congestion, Nasal discharge, Oral lesions, Sinus pain, Sore Throat, Epistaxis, Sneezing, Snoring, Tinnitus, Vertigo, Vocal changes, Other Hematological and Lymphatic: No: Bleeding Problems, Blood Clots, Blood Transfusions, Brusing, Night Sweats, Pallor, Swollen Lymph Nodes, Other Respiratory: No: Cough, Hemoptysis, Orthopnea, Pleuritic Pain, Shortness of breath, SOB with excertion, Sputum Changes, Stridor, Tachypnea, Wheezing, Other Cardiovascular: No Chest Pain, No Palpitations, No Orthopnea, No Paroxysmal Noc. Dyspnea, No Edema, No Lt Headedness, No Other Gastrointestinal: Yes Nausea, Yes Vomiting, Yes Abdominal Pain, Yes Diarrhea Genitourinary: No Dysuria, No Frequency, No Incontinence, No Hematuria, No Retention, No Discharge, No Urgency, No Pain, No Flank Pain, No Other, No , No , No , No , No , No , No Musculoskeletal: No Gait Disturbance, No Joint Pain, No Joint Stiffness, No Joint Swelling, No Muscle Pain, No Muscular Weakness, No Pain In:, No Swelling In:, No Other Neurological: No Behavorial Changes, No Bowel/Bladder ControlChng, No Confusion , No Dizziness, No Gait Disturbance, No Headaches, No Impaired Coord/balance, No Memory Loss, No Numbness/Tingling, No Seizures, No Speech Problems, No Tremors, No Visual Changes, No Weakness, No Other Skin: No Dry Skin, No Eczema, No Hair Changes, No Lumps, No Mole Changes, No Mottling, No Nail Changes, No Pruritus, No Rash, No Skin Lesion Changes, No Other, No Acne Physical Exam General: Alert, Cooperative, mild distress HEENT: Atraumatic, PERRLA, Mucous membr. moist/pink Lungs: Clear to auscultation, Normal air movement Heart: S1S2, no gallops Abdomen: Normal bowel sounds Extremities: No cyanosis, No edema, Normal pulses Skin: No rashes Neuro: Normal speech, Normal tone, Sensation intact Psych/Mental Status: Mental status NL, Mood NL Vitals Vitals Vital Signs Date Time Temp Pulse Resp B/P (MAP) Pulse Ox O2 Delivery O2 Flow Rate FiO2 01/27/19 16:17 Room Air 01/27/19 15:45 76 16 154/82 (106) 100 01/27/19 12:48 98.1 98.1 Labs Labs Laboratory Tests Test 01/27/19 13:17 01/27/19 13:27 White Blood Count 7.0 x10^3/uL (4.0-11.0) Red Blood Count 5.54 x10^6/uL (4.30-5.70) Hemoglobin 14.6 g/dL (13.0-17.5) Hematocrit 44.7 % (39.0-53.0) Mean Corpuscular Volume 81 fL (79-100) Mean Corpuscular Hemoglobin 26 pg (25-35) Mean Corpuscular Hemoglobin Concent 33 g/dL (31-37) Red Cell Distribution Width 16.3 % (11.5-14.5) Platelet Count 216 x10^3/uL (140-400) Neutrophils (%) (Auto) 49 % (31-73) Lymphocytes (%) (Auto) 34 % (24-48) Monocytes (%) (Auto) 7 % (0-9) Eosinophils (%) (Auto) 9 % (0-3) Basophils (%) (Auto) 1 % (0-3) Neutrophils # (Auto) 3.5 x10^3uL (1.8-7.7) Lymphocytes # (Auto) 2.4 x10^3/uL (1.0-4.8) Monocytes # (Auto) 0.5 x10^3/uL (0.0-1.1) Eosinophils # (Auto) 0.6 x10^3/uL (0.0-0.7) Basophils # (Auto) 0.1 x10^3/uL (0.0-0.2) Sodium Level 141 mmol/L (136-145) Potassium Level 3.7 mmol/L (3.5-5.1) Chloride Level 103 mmol/L (98-107) Carbon Dioxide Level 28 mmol/L (21-32) Anion Gap 10 (6-14) Blood Urea Nitrogen 13 mg/dL (8-26) Creatinine 1.0 mg/dL (0.7-1.3) Estimated GFR (Cockcroft-Gault) 99.2 BUN/Creatinine Ratio 13 (6-20) Glucose Level 103 mg/dL (70-99) Calcium Level 9.0 mg/dL (8.5-10.1) Total Bilirubin 0.8 mg/dL (0.2-1.0) Aspartate Amino Transf (AST/SGOT) 17 U/L (15-37) Alanine Aminotransferase (ALT/SGPT) 27 U/L (16-63) Alkaline Phosphatase 55 U/L (46-116) Total Protein 7.4 g/dL (6.4-8.2) Albumin 3.8 g/dL (3.4-5.0) Albumin/Globulin Ratio 1.1 (1.0-1.7) Lipase 872 U/L (73-393) Urine Collection Type Unknown Urine Color Yellow Urine Clarity Clear Urine pH 6.0 Urine Specific [place] 1.020 Urine Protein Negative mg/dL (NEG-TRACE) Urine Glucose (UA) Negative mg/dL (NEG) Urine Ketones (Stick) Negative mg/dL (NEG) Urine Blood Negative (NEG) Urine Nitrite Negative (NEG) Urine Bilirubin Negative (NEG) Urine Urobilinogen Dipstick 0.2 mg/dL (0.2 mg/dL) Urine Leukocyte Esterase Negative (NEG) Urine RBC 3-5 /HPF (0-2) Urine WBC 1-4 /HPF (0-4) Urine Squamous Epithelial Cells Few /LPF Urine Bacteria 0 /HPF (0-FEW) Urine Hyaline Casts Few /HPF Urine Mucus Marked /LPF Urine Opiates Screen Neg (NEG) Urine Methadone Screen Neg (NEG) Urine Barbiturates Neg (NEG) Urine Phencyclidine Screen Neg (NEG) Urine Amphetamine/Methamphetamine Neg (NEG) Urine Benzodiazepines Screen Neg (NEG) Urine Cocaine Screen Neg (NEG) Urine Cannabinoids Screen Pos (NEG) Urine Ethyl Alcohol Neg (NEG) Laboratory Tests Test 01/27/19 13:17 01/27/19 13:27 White Blood Count 7.0 x10^3/uL (4.0-11.0) Red Blood Count 5.54 x10^6/uL (4.30-5.70) Hemoglobin 14.6 g/dL (13.0-17.5) Hematocrit 44.7 % (39.0-53.0) Mean Corpuscular Volume 81 fL (79-100) Mean Corpuscular Hemoglobin 26 pg (25-35) Mean Corpuscular Hemoglobin Concent 33 g/dL (31-37) Red Cell Distribution Width 16.3 % (11.5-14.5) Platelet Count 216 x10^3/uL (140-400) Neutrophils (%) (Auto) 49 % (31-73) Lymphocytes (%) (Auto) 34 % (24-48) Monocytes (%) (Auto) 7 % (0-9) Eosinophils (%) (Auto) 9 % (0-3) Basophils (%) (Auto) 1 % (0-3) Neutrophils # (Auto) 3.5 x10^3uL (1.8-7.7) Lymphocytes # (Auto) 2.4 x10^3/uL (1.0-4.8) Monocytes # (Auto) 0.5 x10^3/uL (0.0-1.1) Eosinophils # (Auto) 0.6 x10^3/uL (0.0-0.7) Basophils # (Auto) 0.1 x10^3/uL (0.0-0.2) Sodium Level 141 mmol/L (136-145) Potassium Level 3.7 mmol/L (3.5-5.1) Chloride Level 103 mmol/L (98-107) Carbon Dioxide Level 28 mmol/L (21-32) Anion Gap 10 (6-14) Blood Urea Nitrogen 13 mg/dL (8-26) Creatinine 1.0 mg/dL (0.7-1.3) Estimated GFR (Cockcroft-Gault) 99.2 BUN/Creatinine Ratio 13 (6-20) Glucose Level 103 mg/dL (70-99) Calcium Level 9.0 mg/dL (8.5-10.1) Total Bilirubin 0.8 mg/dL (0.2-1.0) Aspartate Amino Transf (AST/SGOT) 17 U/L (15-37) Alanine Aminotransferase (ALT/SGPT) 27 U/L (16-63) Alkaline Phosphatase 55 U/L (46-116) Total Protein 7.4 g/dL (6.4-8.2) Albumin 3.8 g/dL (3.4-5.0) Albumin/Globulin Ratio 1.1 (1.0-1.7) Lipase 872 U/L (73-393) Urine Collection Type Unknown Urine Color Yellow Urine Clarity Clear Urine pH 6.0 Urine Specific [place] 1.020 Urine Protein Negative mg/dL (NEG-TRACE) Urine Glucose (UA) Negative mg/dL (NEG) Urine Ketones (Stick) Negative mg/dL (NEG) Urine Blood Negative (NEG) Urine Nitrite Negative (NEG) Urine Bilirubin Negative (NEG) Urine Urobilinogen Dipstick 0.2 mg/dL (0.2 mg/dL) Urine Leukocyte Esterase Negative (NEG) Urine RBC 3-5 /HPF (0-2) Urine WBC 1-4 /HPF (0-4) Urine Squamous Epithelial Cells Few /LPF Urine Bacteria 0 /HPF (0-FEW) Urine Hyaline Casts Few /HPF Urine Mucus Marked /LPF Urine Opiates Screen Neg (NEG) Urine Methadone Screen Neg (NEG) Urine Barbiturates Neg (NEG) Urine Phencyclidine Screen Neg (NEG) Urine Amphetamine/Methamphetamine Neg (NEG) Urine Benzodiazepines Screen Neg (NEG) Urine Cocaine Screen Neg (NEG) Urine Cannabinoids Screen Pos (NEG) Urine Ethyl Alcohol Neg (NEG) VTE Prophylaxis Ordered VTE Prophylaxis Devices: No VTE Pharmacological Prophylaxi: No Assessment/Plan Assessment/Plan pancreatitis, acute, NOS obesity BMI 38 htn MACKENZIE MOISE MD Jan 27, 2019 18:33
[2019-01-27] MEDS: ONDANSETRON ODT 4 MG TAB.RAPDIS. PO SCH (18:45)
[2019-01-27 19:00] VITALS: BP 133/83
--- NOTE | 2019-01-27 20:19 | RAD ---
Clinical History: Acute pancreatitis Technique: Sonographic examination of the right upper quadrant of the abdomen was performed and multiple static images were obtained. Comparison: none Findings: There is limited visualization due to large body habitus. The majority of the liver is visualized and appears homogeneous. The common bile duct appears normal and measures 4 mm in diameter. The gallbladder contains some sludge but no wall thickening surrounding fluid or tenderness. The pancreas is not well visualized due to overlying bowel gas . The right kidney appears normal and measures 11 cm in length. Impression: Possible sludge in gallbladder. No acute findings. Electronically signed by: Rick Nelson III, MD (01/27/2019 8:16 PM) [id number]
[2019-01-27] MEDS: DICLOFENAC SODIUM 25 MG TABLET.DR PO SCH (21:00)
[2019-01-27] MEDS: FAMOTIDINE 20 MG TABLET. PO SCH (21:04)
[2019-01-27] MEDS ORDERED: ZOLPIDEM 5 MG TABLET. PO PRN (22:15)
[2019-01-27 23:02] VITALS: BP 150/103
[2019-01-28] VITALS (8 sets, daily range): BP systolic 120–189; BP diastolic 65–143
[2019-01-28 05:22] LABS: BASO # 0.1 x10^3/uL (0.0-0.2); BASO % 1 % (0-3); EOS # 0.7 x10^3/uL (0.0-0.7); EOS % 11 % (0-3); HEMATOCRIT 43.4 % (39.0-53.0); LYMPH # 2.5 x10^3/uL (1.0-4.8); LYMPH % 39 % (24-48); MEAN CORPUSCULAR HEMOGLOBIN 26 pg (25-35); MEAN CORPUSCULAR HGB CONC 32 g/dL (31-37); MEAN CORPUSCULAR VOLUME 81 fL (79-100); MONO # 0.4 x10^3/uL (0.0-1.1); MONO % 7 % (0-9); NEUT # 2.7 x10^3uL (1.8-7.7); NEUT % 42 % (31-73); PLATELET COUNT 201 x10^3/uL (140-400); RED BLOOD COUNT 5.34 x10^6/uL (4.30-5.70); RED CELL DISTRIBUTION WIDTH 16.3 % (11.5-14.5); WHITE BLOOD COUNT 6.3 x10^3/uL (4.0-11.0)
[2019-01-28 05:33] LABS: PROTHROMBIN TIME PATIENT 13.6 SEC (11.7-14.0)
[2019-01-28] MEDS: ONDANSETRON ODT 4 MG TAB.RAPDIS. PO SCH ×4 (05:51→18:00)
[2019-01-28] MEDS: IV NORMAL SALINE 1000ML BAG 1,000 ML IV SCH ×2 (05:53→13:08)
[2019-01-28 05:55] LABS: ALBUMIN 3.5 g/dL (3.4-5.0); CALCIUM 8.3 mg/dL (8.5-10.1); CREATININE 1.1 mg/dL (0.7-1.3); GFR 88.8; POTASSIUM 3.6 mmol/L (3.5-5.1); TOTAL BILIRUBIN 0.8 mg/dL (0.2-1.0)
[2019-01-28] MEDS: FAMOTIDINE 20 MG TABLET. PO SCH ×2 (08:00→20:19)
[2019-01-28] MEDS: DICLOFENAC SODIUM 25 MG TABLET.DR PO SCH ×2 (08:06→20:17)
--- NOTE | 2019-01-28 11:14 | PDOC2 ---
KHURRAM PAPPAS 01/28/19 1114: GI CONSULT Reason For Consult: Pancreatitis HPI: HPI: 43 y/o male admitted through ER. Has a variety of chronic GI symptoms. Had a colonoscopy in April or May of last year at an outpatient facility in [place] for bleeding - says results were unremarkable except for hemorrhoids and "something on my kidney." Bleeding has continued off and on since then - "dark red blood" w/ wiping and mixed with stool - last occurred two days ago. 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 He also has had some upper abdominal pain ("tight") for a year. This pain also comes and goes without any aggravating or alleviating factors. Has nausea but no vomiting. Pain is unrelated to eating or stooling. Also has a h/o heartburn (unclear when this began) - he has tried Tums, Zantac , and Prilosec OTC ("I took them until they were gone") without improvement - currently untreated. He was seen at [facility] within the past couple months - says he had a CT scan and "no one told me anything." Has established care w/ a new PCP but hasn't seen him yet - Dr. Ornelas. Denies dysphagia, constipation, weight loss, or change in appetite. Denies liver, pancreas, GB, or PUD history. Doesn't think he's ever had an EGD. Takes ibuprofen once or twice a month. We were asked to see him for pancreatitis - mildly elevated lipase (872, now 628 ). Imaging showed possible GB sludge. CT not done per his request because he' s claustrophobic. He's hungry today. Per RN - he reported normal stools. PMH: PMH: HTN, MAGY, hemorrhoids, sickle cell trait, left UE fractures (no surgery) FH: Family History: Cancer (father - "throat," mother - unknown kind, grandmother and aunt - breast) Social History: Smoke: No ALCOHOL: rare (once or month or less) Drugs: Marijuana ROS: GEN: Denies fevers, chills, sweats HEENT: Denies blurred vision, sore throat CV: Denies chest pain RESP: Denies shortness of air, cough GI: Per HPI : Denies hematuria, dysuria ENDO: Denies weight changes NEURO: +dizziness MSK: Denies weakness, joint pain/swelling SKIN: Denies jaundice, pruritus Vitals: Vitals: Vital Signs Date Time Temp Pulse Resp B/P (MAP) Pulse Ox O2 Delivery O2 Flow Rate FiO2 01/28/19 08:05 Room Air 01/28/19 07:00 97.5 78 18 130/89 (103) 97 97.5 Labs: Labs: Laboratory Tests Test 01/27/19 13:17 01/27/19 13:27 01/28/19 04:23 White Blood Count 7.0 x10^3/uL (4.0-11.0) 6.3 x10^3/uL (4.0-11.0) Red Blood Count 5.54 x10^6/uL (4.30-5.70) 5.34 x10^6/uL (4.30-5.70) Hemoglobin 14.6 g/dL (13.0-17.5) 14.0 g/dL (13.0-17.5) Hematocrit 44.7 % (39.0-53.0) 43.4 % (39.0-53.0) Mean Corpuscular Volume 81 fL (79-100) 81 fL (79-100) Mean Corpuscular Hemoglobin 26 pg (25-35) 26 pg (25-35) Mean Corpuscular Hemoglobin Concent 33 g/dL (31-37) 32 g/dL (31-37) Red Cell Distribution Width 16.3 % (11.5-14.5) 16.3 % (11.5-14.5) Platelet Count 216 x10^3/uL (140-400) 201 x10^3/uL (140-400) Neutrophils (%) (Auto) 49 % (31-73) 42 % (31-73) Lymphocytes (%) (Auto) 34 % (24-48) 39 % (24-48) Monocytes (%) (Auto) 7 % (0-9) 7 % (0-9) Eosinophils (%) (Auto) 9 % (0-3) 11 % (0-3) Basophils (%) (Auto) 1 % (0-3) 1 % (0-3) Neutrophils # (Auto) 3.5 x10^3uL (1.8-7.7) 2.7 x10^3uL (1.8-7.7) Lymphocytes # (Auto) 2.4 x10^3/uL (1.0-4.8) 2.5 x10^3/uL (1.0-4.8) Monocytes # (Auto) 0.5 x10^3/uL (0.0-1.1) 0.4 x10^3/uL (0.0-1.1) Eosinophils # (Auto) 0.6 x10^3/uL (0.0-0.7) 0.7 x10^3/uL (0.0-0.7) Basophils # (Auto) 0.1 x10^3/uL (0.0-0.2) 0.1 x10^3/uL (0.0-0.2) Sodium Level 141 mmol/L (136-145) 144 mmol/L (136-145) Potassium Level 3.7 mmol/L (3.5-5.1) 3.6 mmol/L (3.5-5.1) Chloride Level 103 mmol/L (98-107) 106 mmol/L (98-107) Carbon Dioxide Level 28 mmol/L (21-32) 29 mmol/L (21-32) Anion Gap 10 (6-14) 9 (6-14) Blood Urea Nitrogen 13 mg/dL (8-26) 10 mg/dL (8-26) Creatinine 1.0 mg/dL (0.7-1.3) 1.1 mg/dL (0.7-1.3) Estimated GFR (Cockcroft-Gault) 99.2 88.8 BUN/Creatinine Ratio 13 (6-20) 9 (6-20) Glucose Level 103 mg/dL (70-99) 91 mg/dL (70-99) Calcium Level 9.0 mg/dL (8.5-10.1) 8.3 mg/dL (8.5-10.1) Total Bilirubin 0.8 mg/dL (0.2-1.0) 0.8 mg/dL (0.2-1.0) Aspartate Amino Transf (AST/SGOT) 17 U/L (15-37) 20 U/L (15-37) Alanine Aminotransferase (ALT/SGPT) 27 U/L (16-63) 28 U/L (16-63) Alkaline Phosphatase 55 U/L (46-116) 56 U/L (46-116) Total Protein 7.4 g/dL (6.4-8.2) 7.0 g/dL (6.4-8.2) Albumin 3.8 g/dL (3.4-5.0) 3.5 g/dL (3.4-5.0) Albumin/Globulin Ratio 1.1 (1.0-1.7) 1.0 (1.0-1.7) Lipase 872 U/L (73-393) 628 U/L (73-393) Urine Collection Type Unknown Urine Color Yellow Urine Clarity Clear Urine pH 6.0 Urine Specific [place] 1.020 Urine Protein Negative mg/dL (NEG-TRACE) Urine Glucose (UA) Negative mg/dL (NEG) Urine Ketones (Stick) Negative mg/dL (NEG) Urine Blood Negative (NEG) Urine Nitrite Negative (NEG) Urine Bilirubin Negative (NEG) Urine Urobilinogen Dipstick 0.2 mg/dL (0.2 mg/dL) Urine Leukocyte Esterase Negative (NEG) Urine RBC 3-5 /HPF (0-2) Urine WBC 1-4 /HPF (0-4) Urine Squamous Epithelial Cells Few /LPF Urine Bacteria 0 /HPF (0-FEW) Urine Hyaline Casts Few /HPF Urine Mucus Marked /LPF Urine Opiates Screen Neg (NEG) Urine Methadone Screen Neg (NEG) Urine Barbiturates Neg (NEG) Urine Phencyclidine Screen Neg (NEG) Urine Amphetamine/Methamphetamine Neg (NEG) Urine Benzodiazepines Screen Neg (NEG) Urine Cocaine Screen Neg (NEG) Urine Cannabinoids Screen Pos (NEG) Urine Ethyl Alcohol Neg (NEG) Prothrombin Time 13.6 SEC (11.7-14.0) Prothromb Time International Ratio 1.1 (0.8-1.1) Allergies: Coded Allergies: No Known Drug Allergies (Unverified , 01/04/14) Medications: Current Medications Medications (Trade) Dose Ordered Sig/Noah Route PRN Reason Start Time Stop Time Status Last Admin Dose Admin Sodium Chloride 1,000 ml @ 1,000 mls/hr Q1H IV 01/27/19 12:52 01/27/19 13:51 DC 01/27/19 12:52 Ondansetron HCl (Zofran) 4 mg 1X ONCE IV 01/27/19 13:00 01/27/19 13:01 DC 01/27/19 13:00 Ketorolac Tromethamine (Toradol 30mg Vial) 30 mg 1X ONCE IV 01/27/19 13:00 01/27/19 13:01 DC 01/27/19 13:00 Famotidine (Pepcid Vial) 20 mg 1X ONCE IVP 01/27/19 14:30 01/27/19 14:31 DC 01/27/19 14:30 Fentanyl Citrate (Fentanyl 2ml Vial) 50 mcg 1X ONCE IV 01/27/19 15:15 01/27/19 15:16 DC 01/27/19 15:15 Sodium Chloride 1,000 ml @ 150 mls/hr Q6H40M IV 01/27/19 15:38 01/28/19 15:37 01/28/19 05:53 Fentanyl Citrate (Fentanyl 2ml Vial) 50 mcg PRN Q2HR PRN IV PAIN 01/27/19 17:30 01/27/19 19:37 Famotidine (Pepcid) 20 mg BID PO 01/27/19 21:00 01/28/19 08:00 Imaging: Imaging: RUQ US Impression: Possible sludge in gallbladder. No acute findings. PE: GEN: NAD HEENT: Atraumatic, PERRL LUNGS: CTAB HEART: RRR ABD: NABS, S/ND, vague discomfort epigastrium to LUQ/left periumbilical area EXTREMITY: No edema SKIN: No rashes, no jaundice NEURO/PSYCH: A & O 3 A/P: A/P: Chronic upper abd pain, nausea Heartburn Change in bowel habits w/ intermittent blood in stools, h/o hemorrhoids Mildly elevated lipase, possible GB sludge CRC screen - reports colonoscopy in 2018 HTN - per primary -- Unclear significance of mildly elevated lipase w/ chronic symptoms. He declines CT for further eval of pancreas. Okay to ADAT and DC if tolerates. Add PPI for heartburn. Follow-up w/ Dr. Penny as outpt for EGD +/- colonoscopy. Ask for records from previous colonoscopy and recent CT. SHAYLA PENNY MD 01/28/19 1446: KHURRAM PAPPAS Jan 28, 2019 11:14 SHAYLA PENNY MD Jan 28, 2019 14:46
--- NOTE | 2019-01-28 11:40 | PDOC ---
PROGRESS NOTES Chief Complaint Chief Complaint Chronic upper abd pain, nausea GERD elevated lipase, possible GB sludge HTN - per primary History of Present Illness History of Present Illness patient declining CT and asking to eat will advance diet to soft diet GI consulted, will plan for outpatient endoscopy. likely dc home today or han depending on pain and ability to tolerate PO diet denies etoh Vitals Vitals Vital Signs Date Time Temp Pulse Resp B/P (MAP) Pulse Ox O2 Delivery O2 Flow Rate FiO2 01/28/19 08:05 Room Air 01/28/19 07:00 97.5 78 18 130/89 (103) 97 97.5 Physical Exam General: Alert, Cooperative, mild distress Lungs: Clear Abdomen: Normal bowel sounds Extremities: No cyanosis, No edema, Normal pulses Skin: No rashes Labs LABS Laboratory Tests Test 01/27/19 13:17 01/27/19 13:27 01/28/19 04:23 White Blood Count 7.0 x10^3/uL (4.0-11.0) 6.3 x10^3/uL (4.0-11.0) Red Blood Count 5.54 x10^6/uL (4.30-5.70) 5.34 x10^6/uL (4.30-5.70) Hemoglobin 14.6 g/dL (13.0-17.5) 14.0 g/dL (13.0-17.5) Hematocrit 44.7 % (39.0-53.0) 43.4 % (39.0-53.0) Mean Corpuscular Volume 81 fL (79-100) 81 fL (79-100) Mean Corpuscular Hemoglobin 26 pg (25-35) 26 pg (25-35) Mean Corpuscular Hemoglobin Concent 33 g/dL (31-37) 32 g/dL (31-37) Red Cell Distribution Width 16.3 % (11.5-14.5) 16.3 % (11.5-14.5) Platelet Count 216 x10^3/uL (140-400) 201 x10^3/uL (140-400) Neutrophils (%) (Auto) 49 % (31-73) 42 % (31-73) Lymphocytes (%) (Auto) 34 % (24-48) 39 % (24-48) Monocytes (%) (Auto) 7 % (0-9) 7 % (0-9) Eosinophils (%) (Auto) 9 % (0-3) 11 % (0-3) Basophils (%) (Auto) 1 % (0-3) 1 % (0-3) Neutrophils # (Auto) 3.5 x10^3uL (1.8-7.7) 2.7 x10^3uL (1.8-7.7) Lymphocytes # (Auto) 2.4 x10^3/uL (1.0-4.8) 2.5 x10^3/uL (1.0-4.8) Monocytes # (Auto) 0.5 x10^3/uL (0.0-1.1) 0.4 x10^3/uL (0.0-1.1) Eosinophils # (Auto) 0.6 x10^3/uL (0.0-0.7) 0.7 x10^3/uL (0.0-0.7) Basophils # (Auto) 0.1 x10^3/uL (0.0-0.2) 0.1 x10^3/uL (0.0-0.2) Sodium Level 141 mmol/L (136-145) 144 mmol/L (136-145) Potassium Level 3.7 mmol/L (3.5-5.1) 3.6 mmol/L (3.5-5.1) Chloride Level 103 mmol/L (98-107) 106 mmol/L (98-107) Carbon Dioxide Level 28 mmol/L (21-32) 29 mmol/L (21-32) Anion Gap 10 (6-14) 9 (6-14) Blood Urea Nitrogen 13 mg/dL (8-26) 10 mg/dL (8-26) Creatinine 1.0 mg/dL (0.7-1.3) 1.1 mg/dL (0.7-1.3) Estimated GFR (Cockcroft-Gault) 99.2 88.8 BUN/Creatinine Ratio 13 (6-20) 9 (6-20) Glucose Level 103 mg/dL (70-99) 91 mg/dL (70-99) Calcium Level 9.0 mg/dL (8.5-10.1) 8.3 mg/dL (8.5-10.1) Total Bilirubin 0.8 mg/dL (0.2-1.0) 0.8 mg/dL (0.2-1.0) Aspartate Amino Transf (AST/SGOT) 17 U/L (15-37) 20 U/L (15-37) Alanine Aminotransferase (ALT/SGPT) 27 U/L (16-63) 28 U/L (16-63) Alkaline Phosphatase 55 U/L (46-116) 56 U/L (46-116) Total Protein 7.4 g/dL (6.4-8.2) 7.0 g/dL (6.4-8.2) Albumin 3.8 g/dL (3.4-5.0) 3.5 g/dL (3.4-5.0) Albumin/Globulin Ratio 1.1 (1.0-1.7) 1.0 (1.0-1.7) Lipase 872 U/L (73-393) 628 U/L (73-393) Urine Collection Type Unknown Urine Color Yellow Urine Clarity Clear Urine pH 6.0 Urine Specific [place] 1.020 Urine Protein Negative mg/dL (NEG-TRACE) Urine Glucose (UA) Negative mg/dL (NEG) Urine Ketones (Stick) Negative mg/dL (NEG) Urine Blood Negative (NEG) Urine Nitrite Negative (NEG) Urine Bilirubin Negative (NEG) Urine Urobilinogen Dipstick 0.2 mg/dL (0.2 mg/dL) Urine Leukocyte Esterase Negative (NEG) Urine RBC 3-5 /HPF (0-2) Urine WBC 1-4 /HPF (0-4) Urine Squamous Epithelial Cells Few /LPF Urine Bacteria 0 /HPF (0-FEW) Urine Hyaline Casts Few /HPF Urine Mucus Marked /LPF Urine Opiates Screen Neg (NEG) Urine Methadone Screen Neg (NEG) Urine Barbiturates Neg (NEG) Urine Phencyclidine Screen Neg (NEG) Urine Amphetamine/Methamphetamine Neg (NEG) Urine Benzodiazepines Screen Neg (NEG) Urine Cocaine Screen Neg (NEG) Urine Cannabinoids Screen Pos (NEG) Urine Ethyl Alcohol Neg (NEG) Prothrombin Time 13.6 SEC (11.7-14.0) Prothromb Time International Ratio 1.1 (0.8-1.1) Assessment and Plan Assessmemt and Plan Problems Medical Problems: (1) Acute pancreatitis Status: Acute (2) Renal insufficiency Status: Acute Comment Review of Relevant I have reviewed the following items simin (where applicable) has been applied. Labs Laboratory Tests Test 01/27/19 13:17 01/27/19 13:27 01/28/19 04:23 White Blood Count 7.0 x10^3/uL (4.0-11.0) 6.3 x10^3/uL (4.0-11.0) Red Blood Count 5.54 x10^6/uL (4.30-5.70) 5.34 x10^6/uL (4.30-5.70) Hemoglobin 14.6 g/dL (13.0-17.5) 14.0 g/dL (13.0-17.5) Hematocrit 44.7 % (39.0-53.0) 43.4 % (39.0-53.0) Mean Corpuscular Volume 81 fL (79-100) 81 fL (79-100) Mean Corpuscular Hemoglobin 26 pg (25-35) 26 pg (25-35) Mean Corpuscular Hemoglobin Concent 33 g/dL (31-37) 32 g/dL (31-37) Red Cell Distribution Width 16.3 % (11.5-14.5) 16.3 % (11.5-14.5) Platelet Count 216 x10^3/uL (140-400) 201 x10^3/uL (140-400) Neutrophils (%) (Auto) 49 % (31-73) 42 % (31-73) Lymphocytes (%) (Auto) 34 % (24-48) 39 % (24-48) Monocytes (%) (Auto) 7 % (0-9) 7 % (0-9) Eosinophils (%) (Auto) 9 % (0-3) 11 % (0-3) Basophils (%) (Auto) 1 % (0-3) 1 % (0-3) Neutrophils # (Auto) 3.5 x10^3uL (1.8-7.7) 2.7 x10^3uL (1.8-7.7) Lymphocytes # (Auto) 2.4 x10^3/uL (1.0-4.8) 2.5 x10^3/uL (1.0-4.8) Monocytes # (Auto) 0.5 x10^3/uL (0.0-1.1) 0.4 x10^3/uL (0.0-1.1) Eosinophils # (Auto) 0.6 x10^3/uL (0.0-0.7) 0.7 x10^3/uL (0.0-0.7) Basophils # (Auto) 0.1 x10^3/uL (0.0-0.2) 0.1 x10^3/uL (0.0-0.2) Sodium Level 141 mmol/L (136-145) 144 mmol/L (136-145) Potassium Level 3.7 mmol/L (3.5-5.1) 3.6 mmol/L (3.5-5.1) Chloride Level 103 mmol/L (98-107) 106 mmol/L (98-107) Carbon Dioxide Level 28 mmol/L (21-32) 29 mmol/L (21-32) Anion Gap 10 (6-14) 9 (6-14) Blood Urea Nitrogen 13 mg/dL (8-26) 10 mg/dL (8-26) Creatinine 1.0 mg/dL (0.7-1.3) 1.1 mg/dL (0.7-1.3) Estimated GFR (Cockcroft-Gault) 99.2 88.8 BUN/Creatinine Ratio 13 (6-20) 9 (6-20) Glucose Level 103 mg/dL (70-99) 91 mg/dL (70-99) Calcium Level 9.0 mg/dL (8.5-10.1) 8.3 mg/dL (8.5-10.1) Total Bilirubin 0.8 mg/dL (0.2-1.0) 0.8 mg/dL (0.2-1.0) Aspartate Amino Transf (AST/SGOT) 17 U/L (15-37) 20 U/L (15-37) Alanine Aminotransferase (ALT/SGPT) 27 U/L (16-63) 28 U/L (16-63) Alkaline Phosphatase 55 U/L (46-116) 56 U/L (46-116) Total Protein 7.4 g/dL (6.4-8.2) 7.0 g/dL (6.4-8.2) Albumin 3.8 g/dL (3.4-5.0) 3.5 g/dL (3.4-5.0) Albumin/Globulin Ratio 1.1 (1.0-1.7) 1.0 (1.0-1.7) Lipase 872 U/L (73-393) 628 U/L (73-393) Urine Collection Type Unknown Urine Color Yellow Urine Clarity Clear Urine pH 6.0 Urine Specific [place] 1.020 Urine Protein Negative mg/dL (NEG-TRACE) Urine Glucose (UA) Negative mg/dL (NEG) Urine Ketones (Stick) Negative mg/dL (NEG) Urine Blood Negative (NEG) Urine Nitrite Negative (NEG) Urine Bilirubin Negative (NEG) Urine Urobilinogen Dipstick 0.2 mg/dL (0.2 mg/dL) Urine Leukocyte Esterase Negative (NEG) Urine RBC 3-5 /HPF (0-2) Urine WBC 1-4 /HPF (0-4) Urine Squamous Epithelial Cells Few /LPF Urine Bacteria 0 /HPF (0-FEW) Urine Hyaline Casts Few /HPF Urine Mucus Marked /LPF Urine Opiates Screen Neg (NEG) Urine Methadone Screen Neg (NEG) Urine Barbiturates Neg (NEG) Urine Phencyclidine Screen Neg (NEG) Urine Amphetamine/Methamphetamine Neg (NEG) Urine Benzodiazepines Screen Neg (NEG) Urine Cocaine Screen Neg (NEG) Urine Cannabinoids Screen Pos (NEG) Urine Ethyl Alcohol Neg (NEG) Prothrombin Time 13.6 SEC (11.7-14.0) Prothromb Time International Ratio 1.1 (0.8-1.1) Laboratory Tests Test 01/27/19 13:17 01/27/19 13:27 01/28/19 04:23 White Blood Count 7.0 x10^3/uL (4.0-11.0) 6.3 x10^3/uL (4.0-11.0) Red Blood Count 5.54 x10^6/uL (4.30-5.70) 5.34 x10^6/uL (4.30-5.70) Hemoglobin 14.6 g/dL (13.0-17.5) 14.0 g/dL (13.0-17.5) Hematocrit 44.7 % (39.0-53.0) 43.4 % (39.0-53.0) Mean Corpuscular Volume 81 fL (79-100) 81 fL (79-100) Mean Corpuscular Hemoglobin 26 pg (25-35) 26 pg (25-35) Mean Corpuscular Hemoglobin Concent 33 g/dL (31-37) 32 g/dL (31-37) Red Cell Distribution Width 16.3 % (11.5-14.5) 16.3 % (11.5-14.5) Platelet Count 216 x10^3/uL (140-400) 201 x10^3/uL (140-400) Neutrophils (%) (Auto) 49 % (31-73) 42 % (31-73) Lymphocytes (%) (Auto) 34 % (24-48) 39 % (24-48) Monocytes (%) (Auto) 7 % (0-9) 7 % (0-9) Eosinophils (%) (Auto) 9 % (0-3) 11 % (0-3) Basophils (%) (Auto) 1 % (0-3) 1 % (0-3) Neutrophils # (Auto) 3.5 x10^3uL (1.8-7.7) 2.7 x10^3uL (1.8-7.7) Lymphocytes # (Auto) 2.4 x10^3/uL (1.0-4.8) 2.5 x10^3/uL (1.0-4.8) Monocytes # (Auto) 0.5 x10^3/uL (0.0-1.1) 0.4 x10^3/uL (0.0-1.1) Eosinophils # (Auto) 0.6 x10^3/uL (0.0-0.7) 0.7 x10^3/uL (0.0-0.7) Basophils # (Auto) 0.1 x10^3/uL (0.0-0.2) 0.1 x10^3/uL (0.0-0.2) Sodium Level 141 mmol/L (136-145) 144 mmol/L (136-145) Potassium Level 3.7 mmol/L (3.5-5.1) 3.6 mmol/L (3.5-5.1) Chloride Level 103 mmol/L (98-107) 106 mmol/L (98-107) Carbon Dioxide Level 28 mmol/L (21-32) 29 mmol/L (21-32) Anion Gap 10 (6-14) 9 (6-14) Blood Urea Nitrogen 13 mg/dL (8-26) 10 mg/dL (8-26) Creatinine 1.0 mg/dL (0.7-1.3) 1.1 mg/dL (0.7-1.3) Estimated GFR (Cockcroft-Gault) 99.2 88.8 BUN/Creatinine Ratio 13 (6-20) 9 (6-20) Glucose Level 103 mg/dL (70-99) 91 mg/dL (70-99) Calcium Level 9.0 mg/dL (8.5-10.1) 8.3 mg/dL (8.5-10.1) Total Bilirubin 0.8 mg/dL (0.2-1.0) 0.8 mg/dL (0.2-1.0) Aspartate Amino Transf (AST/SGOT) 17 U/L (15-37) 20 U/L (15-37) Alanine Aminotransferase (ALT/SGPT) 27 U/L (16-63) 28 U/L (16-63) Alkaline Phosphatase 55 U/L (46-116) 56 U/L (46-116) Total Protein 7.4 g/dL (6.4-8.2) 7.0 g/dL (6.4-8.2) Albumin 3.8 g/dL (3.4-5.0) 3.5 g/dL (3.4-5.0) Albumin/Globulin Ratio 1.1 (1.0-1.7) 1.0 (1.0-1.7) Lipase 872 U/L (73-393) 628 U/L (73-393) Urine Collection Type Unknown Urine Color Yellow Urine Clarity Clear Urine pH 6.0 Urine Specific [place] 1.020 Urine Protein Negative mg/dL (NEG-TRACE) Urine Glucose (UA) Negative mg/dL (NEG) Urine Ketones (Stick) Negative mg/dL (NEG) Urine Blood Negative (NEG) Urine Nitrite Negative (NEG) Urine Bilirubin Negative (NEG) Urine Urobilinogen Dipstick 0.2 mg/dL (0.2 mg/dL) Urine Leukocyte Esterase Negative (NEG) Urine RBC 3-5 /HPF (0-2) Urine WBC 1-4 /HPF (0-4) Urine Squamous Epithelial Cells Few /LPF Urine Bacteria 0 /HPF (0-FEW) Urine Hyaline Casts Few /HPF Urine Mucus Marked /LPF Urine Opiates Screen Neg (NEG) Urine Methadone Screen Neg (NEG) Urine Barbiturates Neg (NEG) Urine Phencyclidine Screen Neg (NEG) Urine Amphetamine/Methamphetamine Neg (NEG) Urine Benzodiazepines Screen Neg (NEG) Urine Cocaine Screen Neg (NEG) Urine Cannabinoids Screen Pos (NEG) Urine Ethyl Alcohol Neg (NEG) Prothrombin Time 13.6 SEC (11.7-14.0) Prothromb Time International Ratio 1.1 (0.8-1.1) Medications Current Medications Sodium Chloride 1,000 ml @ 1,000 mls/hr Q1H IV Last administered on 01/27/19at 12:52; Start 01/27/19 at 12:52; Stop 01/27/19 at 13:51; Status DC Ondansetron HCl (Zofran) 4 mg 1X ONCE IV Last administered on 01/27/19at 13:00 ; Start 01/27/19 at 13:00; Stop 01/27/19 at 13:01; Status DC Ketorolac Tromethamine (Toradol 30mg Vial) 30 mg 1X ONCE IV Last administered on 01/27/19at 13:00; Start 01/27/19 at 13:00; Stop 01/27/19 at 13:01; Status DC Famotidine (Pepcid Vial) 20 mg 1X ONCE IVP Last administered on 01/27/19at 14: 30; Start 01/27/19 at 14:30; Stop 01/27/19 at 14:31; Status DC Iohexol (Omnipaque 300 Mg/ml) 75 ml 1X ONCE IV ; Start 01/27/19 at 15:00; Stop 01/27/19 at 15:01; Status DC Info (CONTRAST GIVEN -- Rx MONITORING) 1 each PRN DAILY PRN MC SEE COMMENTS; Start 01/27/19 at 15:00; Stop 01/29/19 at 14:59 Fentanyl Citrate (Fentanyl 2ml Vial) 50 mcg 1X ONCE IV Last administered on at 15:15; Start 01/27/19 at 15:15; Stop 01/27/19 at 15:16; Status DC Sodium Chloride 1,000 ml @ 150 mls/hr Q6H40M IV Last administered on at 05:53; Start 01/27/19 at 15:38; Stop 01/28/19 at 15:37 Ondansetron HCl (Zofran) 4 mg PRN Q8HRS PRN IV NAUSEA/VOMITING; Start 01/27/19 at 17:30 Fentanyl Citrate (Fentanyl 2ml Vial) 50 mcg PRN Q2HR PRN IV PAIN Last administered on 01/27/19at 19:37; Start 01/27/19 at 17:30 Labetalol HCl (Normodyne Iv Push) 20 mg PRN Q2HR PRN IVP HYPERTENSION, SEE COMMENTS; Start 01/27/19 at 18:30 Famotidine (Pepcid) 20 mg BID PO Last administered on 01/28/19at 08:00; Start at 21:00 Diclofenac Sodium (Voltaren) 50 mg BID PO ; Start 01/27/19 at 21:00 Ondansetron HCl (Zofran Odt) 4 mg Q6HRS PO ; Start 01/27/19 at 18:45 Zolpidem Tartrate (Ambien) 5 mg PRN QHS PRN PO INSOMNIA, MAY REPEAT IN 1HR; Start 01/27/19 at 22:15 Active Scripts Active Zofran (Ondansetron Hcl) 4 Mg Tablet 1 Tab PO Q6HRS Pepcid (Famotidine) 20 Mg Tablet 20 Mg PO BID Medrol (Methylprednisolone) 4 Mg Tab.ds.pk 1 Pkg PO UD Diclofenac Sodium 50 Mg Tablet.dr 1 Tab PO BID Reported Aspirin 325 Mg Tablet 1 Tab PO DAILY Vitals/I & O Vital Sign - Last 24 Hours 01/27/19 01/27/19 01/27/19 01/27/19 12:48 13:45 14:45 15:15 Temp 98.1 98.1 Pulse 75 74 72 Resp 16 16 16 16 B/P (MAP) 150/102 (118) 153/70 (97) 149/82 (104) Pulse Ox 97 100 100 98 O2 Delivery Room Air Room Air Room Air Room Air 01/27/19 01/27/19 01/27/19 01/27/19 15:45 16:15 16:17 19:00 Temp 97.5 97.5 Pulse 76 58 Resp 16 20 B/P (MAP) 154/82 (106) 133/83 (100) Pulse Ox 100 97 O2 Delivery Room Air Room Air Room Air Room Air 01/27/19 01/27/19 01/27/19 01/27/19 19:37 20:00 20:07 23:02 Temp 97.7 97.7 Pulse 63 Resp 20 20 20 B/P (MAP) 150/103 (119) Pulse Ox 97 98 99 O2 Delivery Room Air Room Air Room Air Room Air 01/28/19 01/28/19 01/28/19 01/28/19 03:05 05:24 07:00 08:05 Temp 98.2 97.5 98.2 97.5 Pulse 57 55 78 Resp 20 18 B/P (MAP) 189/143 (158) 126/86 (99) 130/89 (103) Pulse Ox 98 97 O2 Delivery Room Air Room Air Room Air Intake and Output 01/27/19 01/27/19 01/28/19 15:00 23:00 07:00 Intake Total 1000 ml 1000 ml Balance 1000 ml 1000 ml MARKUS CANAS MD Jan 28, 2019 11:40
[2019-01-28] MEDS ORDERED: AMLO10TA8 PO (13:07)
[2019-01-28] MEDS ORDERED: HYDR12.58 PO (13:07)
[2019-01-28] MEDS ORDERED: LOSA50TA15 PO (13:07)
[2019-01-28] MEDS ORDERED: METO-239 PO (13:07)
[2019-01-28] MEDS ORDERED: HYDR-2869 PO (13:07)
[2019-01-28] MEDS ORDERED: ACETAMINOPHEN 325 MG TABLET. PO PRN (13:30)
[2019-01-28] MEDS: hydroCHLOROthiazide 12.5 MG CAPSULE PO SCH (20:18)
[2019-01-28] MEDS: METOPROLOL SUCC 24HR ER 25 MG TAB.ER.24H. PO SCH (20:18)
[2019-01-28] MEDS: LOSARTAN POTASSIUM 50 MG TABLET. PO SCH (20:18)
[2019-01-28] MEDS: amLODIPine BESYLATE 10 MG TABLET PO SCH (20:18)
[2019-01-29 03:00] VITALS: BP 135/81
[2019-01-29] MEDS: ONDANSETRON ODT 4 MG TAB.RAPDIS. PO SCH ×3 (05:32→12:00)
[2019-01-29 07:00] VITALS: BP 139/92
[2019-01-29] MEDS: METOPROLOL SUCC 24HR ER 25 MG TAB.ER.24H. PO SCH (08:09)
[2019-01-29] MEDS: hydroCHLOROthiazide 12.5 MG CAPSULE PO SCH (08:10)
[2019-01-29] MEDS: amLODIPine BESYLATE 10 MG TABLET PO SCH (08:10)
[2019-01-29] MEDS: FAMOTIDINE 20 MG TABLET. PO SCH (08:10)
[2019-01-29] MEDS: DICLOFENAC SODIUM 25 MG TABLET.DR PO SCH (08:11)
[2019-01-29] MEDS: LOSARTAN POTASSIUM 50 MG TABLET. PO SCH (08:11)
--- NOTE | 2019-01-29 08:42 | NUR ---
SW following pt for anticipated dc needs. Chart reviewed and DW RN. Pt lives at home with significant other. No SW needs noted at this time.
--- NOTE | 2019-01-29 09:33 | PDOC ---
Subjective: Subjective: Feels better, would like to go home. Tolerating PO w/ less upper abd pain, also reports normal stools w/o bleeding. Objective: Objective: Received records from [facility] - CT A/P w/ contrast on 11.22.18 was without acute abnormality - noted incidental right renal cyst and small granuloma at left lung base. Pancreas was unremarkable. No biliary stones or ductal dilatation. No records from previous colonoscopy. Vital Signs: Vital Signs Date Time Temp Pulse Resp B/P (MAP) Pulse Ox O2 Delivery O2 Flow Rate FiO2 01/29/19 08:11 61 139/92 01/29/19 08:05 Room Air 01/29/19 07:00 98.2 16 97 98.2 PE: GEN: NAD - talking on the phone, watching tv LUNGS: CTAB HEART: RRR ABD: soft, less epi/LUQ discomfort, BS+ NEURO/PSYCH: A & O 3 A/P: Chronic upper abd pain, nausea - better Heartburn, irregular bowel habits H/o hemorrhoids w/ intermittent bleeding - reports colonoscopy in 2017 Mildly elevated lipase, possible GB sludge - pancreas normal on CT in 11/2018 +marijuana -- Improved. DC per primary on PPI. Follow-up w/ Dr. Penny in clinic. Stop marijuana. KHURRAM PAPPAS Jan 29, 2019 09:33
[2019-01-29 11:00] VITALS: BP 140/91
[2019-01-29] MEDS ORDERED: Pantoprazole PO (12:33)
--- NOTE | 2019-01-29 12:46 | PDOC3 ---
Discharge Summary Visit Information Date of Admission: Jan 27, 2019 Date of Discharge: Jan 29, 2019 Final Diagnosis Problems Medical Problems: (1) Acute pancreatitis Status: Acute (2) Renal insufficiency Status: Acute Brief Hospital Course Allergies Allergies Coded Allergies Type Severity Reaction Last Updated Verified No Known Drug Allergies 01/04/14 No Vital Signs Vital Signs Date Time Temp Pulse Resp B/P (MAP) Pulse Ox O2 Delivery O2 Flow Rate FiO2 01/29/19 11:00 98.5 63 16 140/91 (107) 97 Room Air 98.5 Lab Results Laboratory Tests Test 01/27/19 13:17 01/27/19 13:27 01/28/19 04:23 White Blood Count 7.0 x10^3/uL (4.0-11.0) 6.3 x10^3/uL (4.0-11.0) Red Blood Count 5.54 x10^6/uL (4.30-5.70) 5.34 x10^6/uL (4.30-5.70) Hemoglobin 14.6 g/dL (13.0-17.5) 14.0 g/dL (13.0-17.5) Hematocrit 44.7 % (39.0-53.0) 43.4 % (39.0-53.0) Mean Corpuscular Volume 81 fL (79-100) 81 fL (79-100) Mean Corpuscular Hemoglobin 26 pg (25-35) 26 pg (25-35) Mean Corpuscular Hemoglobin Concent 33 g/dL (31-37) 32 g/dL (31-37) Red Cell Distribution Width 16.3 % (11.5-14.5) 16.3 % (11.5-14.5) Platelet Count 216 x10^3/uL (140-400) 201 x10^3/uL (140-400) Neutrophils (%) (Auto) 49 % (31-73) 42 % (31-73) Lymphocytes (%) (Auto) 34 % (24-48) 39 % (24-48) Monocytes (%) (Auto) 7 % (0-9) 7 % (0-9) Eosinophils (%) (Auto) 9 % (0-3) 11 % (0-3) Basophils (%) (Auto) 1 % (0-3) 1 % (0-3) Neutrophils # (Auto) 3.5 x10^3uL (1.8-7.7) 2.7 x10^3uL (1.8-7.7) Lymphocytes # (Auto) 2.4 x10^3/uL (1.0-4.8) 2.5 x10^3/uL (1.0-4.8) Monocytes # (Auto) 0.5 x10^3/uL (0.0-1.1) 0.4 x10^3/uL (0.0-1.1) Eosinophils # (Auto) 0.6 x10^3/uL (0.0-0.7) 0.7 x10^3/uL (0.0-0.7) Basophils # (Auto) 0.1 x10^3/uL (0.0-0.2) 0.1 x10^3/uL (0.0-0.2) Sodium Level 141 mmol/L (136-145) 144 mmol/L (136-145) Potassium Level 3.7 mmol/L (3.5-5.1) 3.6 mmol/L (3.5-5.1) Chloride Level 103 mmol/L (98-107) 106 mmol/L (98-107) Carbon Dioxide Level 28 mmol/L (21-32) 29 mmol/L (21-32) Anion Gap 10 (6-14) 9 (6-14) Blood Urea Nitrogen 13 mg/dL (8-26) 10 mg/dL (8-26) Creatinine 1.0 mg/dL (0.7-1.3) 1.1 mg/dL (0.7-1.3) Estimated GFR (Cockcroft-Gault) 99.2 88.8 BUN/Creatinine Ratio 13 (6-20) 9 (6-20) Glucose Level 103 mg/dL (70-99) 91 mg/dL (70-99) Calcium Level 9.0 mg/dL (8.5-10.1) 8.3 mg/dL (8.5-10.1) Total Bilirubin 0.8 mg/dL (0.2-1.0) 0.8 mg/dL (0.2-1.0) Aspartate Amino Transf (AST/SGOT) 17 U/L (15-37) 20 U/L (15-37) Alanine Aminotransferase (ALT/SGPT) 27 U/L (16-63) 28 U/L (16-63) Alkaline Phosphatase 55 U/L (46-116) 56 U/L (46-116) Total Protein 7.4 g/dL (6.4-8.2) 7.0 g/dL (6.4-8.2) Albumin 3.8 g/dL (3.4-5.0) 3.5 g/dL (3.4-5.0) Albumin/Globulin Ratio 1.1 (1.0-1.7) 1.0 (1.0-1.7) Lipase 872 U/L (73-393) 628 U/L (73-393) Urine Collection Type Unknown Urine Color Yellow Urine Clarity Clear Urine pH 6.0 Urine Specific [place] 1.020 Urine Protein Negative mg/dL (NEG-TRACE) Urine Glucose (UA) Negative mg/dL (NEG) Urine Ketones (Stick) Negative mg/dL (NEG) Urine Blood Negative (NEG) Urine Nitrite Negative (NEG) Urine Bilirubin Negative (NEG) Urine Urobilinogen Dipstick 0.2 mg/dL (0.2 mg/dL) Urine Leukocyte Esterase Negative (NEG) Urine RBC 3-5 /HPF (0-2) Urine WBC 1-4 /HPF (0-4) Urine Squamous Epithelial Cells Few /LPF Urine Bacteria 0 /HPF (0-FEW) Urine Hyaline Casts Few /HPF Urine Mucus Marked /LPF Urine Opiates Screen Neg (NEG) Urine Methadone Screen Neg (NEG) Urine Barbiturates Neg (NEG) Urine Phencyclidine Screen Neg (NEG) Urine Amphetamine/Methamphetamine Neg (NEG) Urine Benzodiazepines Screen Neg (NEG) Urine Cocaine Screen Neg (NEG) Urine Cannabinoids Screen Pos (NEG) Urine Ethyl Alcohol Neg (NEG) Prothrombin Time 13.6 SEC (11.7-14.0) Prothromb Time International Ratio 1.1 (0.8-1.1) Brief Hospital Course 43 old BM with chronic GI symptoms. Patient Had a colonoscopy in April or May of 2018 at an outpatient facility in [place] for bleeding - says results were unremarkable except for hemorrhoids. reports intermittent bleeding but not since 2 days. patient reports epigastric pain. Has nausea but no vomiting. Pain is unrelated to eating or stooling. patient has a h/o heartburn (unclear when this began) - he has tried Tums, Zantac, and Prilosec OTC without improvement - currently untreated. patient Denies dysphagia, constipation, weight loss, or change in appetite. Denies liver, pancreas, GB, or PUD history. Takes ibuprofen infrequently. reports diarrhea but not since 2 days. in ED found to have mildly elevated lipase. Abdominal US Imaging showed possible GB sludge. patient refused CT scan. hospitalist called for admission. patient admitted to the floor and started on IVF and pain meds for treatment of suspected pancreatitis. He has Chronic upper abd pain, nausea. suspect exacerbated by marijuana. patient started on PPI therapy for heartburn. has H/o hemorrhoids w/ intermittent bleeding - reports colonoscopy in 2018. he has Mildly elevated lipase, possible GB sludge - pancreas normal on CT in 11/2018. patient able to tolerate diet and pain free at time of discharge. he will Follow -up w/ Dr. Penny in clinic. he was encouraged to Stop marijuana. Discharge Information Condition at Discharge: Improved Follow Up: Weeks Disposition/Orders: D/C to Home Scheduled Amlodipine Besylate (Amlodipine Besylate) 10 Mg Tablet, 10 MG PO DAILY for hypertension, (Reported) Entered as Reported by: NAHOMY PAULA on 01/28/191306 Last Action: Continued on 01/28/191849 by NAHOMY PAULA Aspirin (Aspirin) 325 Mg Tablet, 1 TAB PO DAILY, #30 Ref 5 (Reported) Entered as Reported by: CECILIO DAWN on 02/11/15 0731 Last Action: HELD on 01/27/191826 by MACKENZIE MOISE Hydralazine Hcl (Hydralazine Hcl) 50 Mg Tablet, 50 MG PO TID for hyptertension, (Reported) Entered as Reported by: NAHOMY PAULA on 01/28/191306 Last Action: Converted on 01/28/191849 by NAHOMY PAULA Hydrochlorothiazide (Hydrochlorothiazide Tablet) 12.5 Mg Tablet, 12.5 MG PO DAILY for hypertension, (Reported) Entered as Reported by: NAHOMY PAULA on 01/28/191306 Last Action: Converted on 01/28/191849 by NAHOMY PAULA Losartan Potassium (Losartan Potassium) 50 Mg Tablet, 50 MG PO DAILY for hypertension, (Reported) Entered as Reported by: NAHOMY PAULA on 01/28/191306 Last Action: Continued on 01/28/191849 by NAHOMY PAULA Metoprolol Succinate (Metoprolol Succinate ( Xl )) 25 Mg Tab.er.24h, 25 MG PO DAILY for hypertension, (Reported) Entered as Reported by: NAHOMY PAULA on 01/28/191306 Last Action: Continued on 01/28/191849 by NAHOMY PAULA Ondansetron Hcl (Zofran) 4 Mg Tablet, 1 TAB PO Q6HRS, #10 Ref 0 Prescribed by: CYNDIE BELL on 11/01/18309 Last Action: Converted on 01/27/191826 by MACKENZIE MOISE [Pantoprazole] 40 MG TABLET., 40 MG PO DAILY for gerd Prescribed by: MARKUS CANAS MD on 01/29/19 1233 MARKUS CANAS MD Jan 29, 2019 12:46
--- NOTE | 2019-01-29 13:18 | NUR ---
Discharge Note: JUVENTINO MARKS Discharge instructions and discharge home medications reviewed with Patient and a copy given. All questions have been answered and understanding verbalized. All belongings noted that he took with him. The following instructions and handouts were given: discharge instructions, new prescription, education and follow up recommendations. Discontinued lines and drains: Peripheral IV discontinued intact. Patient discharged to Home or Self Care with Self via [facility] off unit by [employer] to private vehicle.
[2019-01-29] MEDS ORDERED: PANTOPRAZOLE 40 MG TABLET.DR. PO SCH (16:30)
== END 2019-01-29 13:20 | disposition home or self-care (01) | DRG 440 ==
LOC: ER 12:34 → 5 NORTH 15:19
PROVIDERS: ADMIT Internal Medicine; ATTEND Internal Medicine
DX: K85.90 Acute pancreatitis without necrosis or infection, unspecified (principal); F12.90 Cannabis use, unspecified, uncomplicated; G47.33 Obstructive sleep apnea (adult) (pediatric); I10 Essential (primary) hypertension; K21.9 Gastro-esophageal reflux disease without esophagitis; N28.9 Disorder of kidney and ureter, unspecified; E66.01 Morbid (severe) obesity due to excess calories; G89.29 Other chronic pain; Z68.38 Body mass index [BMI] 38.0-38.9, adult; Z80.3 Family history of malignant neoplasm of breast; Z80.8 Family history of malignant neoplasm of other organs or systems; Z71.51 Drug abuse counseling and surveillance of drug abuser
CPT/HCPCS: 36415; 76705; 80053; 80307; 81001; 83690; 85025; 85610; 96361; 96374; 96375; J1885; J2405; J3010; J3490; J7030; Q0162; 99285-25

== ENCOUNTER → 2019-02-12 | Day surgery (SDC) | payer BC ==
[~2019-02-12] MED LIST changes: +AMLO10TA8 PO; +HYDR-2869 PO; +HYDR12.58 PO; +IV RINGERS,LACTATED 1000ML 1,000 ML IV SCH; +LIDOCAINE 2% PF 5 ML VIAL. ONE; +LOSA50TA15 PO; +METO-239 PO; +PROPOFOL 40 ML IV ONE; +Pantoprazole PO
[2019-02-12 10:50] VITALS: BP 167/103
--- NOTE | 2019-02-13 16:06 | PATHOLOGY ---
[facility] Accession Number: [id number] . 01 Material submitted: . PART A: small bowel - SMALL BOWEL PART B: duodenum - BULB BX PART C: gastrointestinal site - RANDOM GASTRIC BX PART D: gastrointestinal site - GE JUNCTION BX PART E: esophagus - PROXIMAL ESOPHAGUS BX. Modifiers: proximal . 01 Clinical history: . reflux, dyshagia h pylori . 02 Diagnosis: A. Small bowel biopsies: - No significant pathologic abnormalities. . B. Duodenal bulb biopsies: - Congestion and focally prominent submucosal Brittany's glands. . C. Random gastric biopsies: - Active chronic gastritis, moderate to marked, with numerous Helicobacter organisms identified. . D. Gastroesophageal junction biopsy: - Segment of gastric mucosa showing moderate active chronic inflammation. . E. Proximal esophageal biopsy: - Segment of hyperplastic squamous esophageal mucosa identified consistent with reflux esophagitis. . (JPM:mmja; 02/13/2019) ON LICENSE OF [facility]/02/13/2019 . 02 Comment: Sections of the small bowel biopsy reveal segments of duodenal and small intestine mucosa. Where best oriented, the mucosal villi show no sprue-like changes or significant inflammatory changes. . Sections of the duodenal bulb biopsy reveal segments of duodenal mucosa showing congestion and focally prominent submucosal Brittany's glands. There are no sprue-like changes or significant inflammatory changes. . Sections of the random gastric biopsy reveal segments of gastric antral and gastric body mucosa. The gastric body mucosa shows congestion and mild to moderate superficial active chronic inflammation. The gastric antral mucosa shows congestion and moderate to marked active chronic inflammation. A properly-controlled immunoperoxidase stain for Helicobacter reveals numerous Helicobacter organisms. There is no evidence of malignancy. . Sections of the gastroesophageal junction biopsy reveal a segment of gastric mucosa showing congestion and focally active moderate chronic inflammation. There is no squamous esophageal mucosa. There is no evidence of Bloom's change, dysplasia or malignancy. . Sections of the proximal esophageal biopsy reveal a tangentially-oriented segment of hyperplastic squamous esophageal mucosa. There are a few scattered intraepithelial eosinophils. The findings are consistent with reflux esophagitis. There is no evidence of an eosinophilic esophagitis. . Special stain performed: Immunoperoxidase stain for Helicobacter on C1. . (JPM:mml; 02/13/2019) . 02 Electronically signed: . Chuckie Oro MD, Pathologist NPI- [id number] . 01 Gross description: . A. The specimen is received in formalin, labeled "Mahesh, Zak, small bowel BX" and consists of 4 fragments of soft fulton tissue measuring between 0.2 x 0.2 cm and 0.3 x 0.3 x 0.2 cm which are entirely submitted in A1. . B. The specimen is received in formalin, labeled "Mahesh, Zak, bulb BX" and consists of 4 fragments of pink-fulton tissue measuring between 0.2 x 0.2 cm and 0.3 x 0.2 x 0.1 cm which are entirely submitted in B1. . C. The specimen is received in formalin, labeled "Mahesh, Zak, random gastric BX" and consists of multiple fragments of fulton tissue measuring 0.8 x 0.8 x 0.2 cm in aggregate which are entirely submitted in C1. . D. The specimen is received in formalin, labeled "Mahesh, Zak, GE junction BX" and consists of a fragment of fulton tissue measuring 0.4 x 0.3 x 0.1 cm which is entirely submitted in D1. . E. The specimen is received in formalin, labeled "Mahesh, Zak, proximal esophagus BX" and consists of a translucent fragment of tolliver-fulton tissue measuring 0.6 x 0.4 x 0.1 cm which is entirely submitted in E1. (SDY; 02/12/2019) SYU/SYU . 02 Pathologist provided ICD-10: K31.89, K29.50, K21.0 . 02 CPT . 140826, 339486, 915097, 135398, 269399, [id number] Specimen Comment: A courtesy copy of this report has been sent to Specimen Comment: [phone], . Specimen Comment: Report sent to / DR ARAUZ Performed at: 01 [facility] [address], [place], [place] [id number] MD Thomas Richardson MD Phone: [phone] Performed at: 02 [facility] [address] [place], [place] [id number] MD Chuckie Oro MD Phone: [phone]
== END | disposition home or self-care (01) ==
LOC: SURG 09:06
PROVIDERS: ATTEND Internal Medicine
DX: K21.0 Gastro-esophageal reflux disease with esophagitis (principal); K29.50 Unspecified chronic gastritis without bleeding; K31.89 Other diseases of stomach and duodenum; K22.8 Other specified diseases of esophagus; I10 Essential (primary) hypertension; G47.33 Obstructive sleep apnea (adult) (pediatric); Z79.899 Other long term (current) drug therapy
CPT/HCPCS: 43239; 88305; 88342; J2001; J2704

== ENCOUNTER 2019-03-10 12:54 | Emergency (ER) | payer BC ==
[~2019-03-10] VITALS: Ht 180.3 cm; Wt 127.0 kg
[~2019-03-10 12:54] MED LIST changes: -IV RINGERS,LACTATED 1000ML 1,000 ML IV SCH; -LIDOCAINE 2% PF 5 ML VIAL. ONE; -PROPOFOL 40 ML IV ONE
--- NOTE | 2019-03-10 13:45 | PHYS DOC ---
Past Medical History Past Medical History: Hypertension Past Surgical History: No Surgical History Alcohol Use: None Drug Use: Marijuana Adult General Chief Complaint Chief Complaint: LOWER EXT PAIN HPI HPI 45-year-old male presents to ER for complaints of one week history of left lower leg pain and swelling. Patient denies any injury, falls, or past history of surgeries/injury to left lower extremity. Patient reports pain has been constant denies inability to ambulate. Patient denies any recent travel, smoking history, clotting or bleeding disorders, or past history of PE/DVT. Patient reports he took Ibuprofen yesterday with no relief in symptoms denies any xuak-gnm-[id number] medications today. Patient reports he has tried sports cream to affected area with no relief as well. Patient denies urinary symptoms. Patient denies fever or skin discoloration. Review of Systems Review of Systems Constitutional: Denies fever or chills [] Respiratory: Denies cough or shortness of breath [] Cardiovascular: No additional information not addressed in HPI [] GI: Denies abdominal pain, nausea, vomiting, bloody stools or diarrhea [] : Denies dysuria or hematuria [] Musculoskeletal: Denies back pain. Reports lt lower leg pain/swelling and calf tenderness Integument: Denies rash or skin lesions. Reports numbness/tingling in lt LE Neurologic: Denies focal weakness or sensory changes All other systems were reviewed and found to be within normal limits, except as documented in this note. Allergies Allergies Allergies Coded Allergies Type Severity Reaction Last Updated Verified No Known Drug Allergies 02/12/19 No Physical Exam Physical Exam Constitutional: Well developed, well nourished, no acute distress, non-toxic appearance. [] HENT: Normocephalic, atraumatic, oropharynx moist, nose normal. [] Eyes: Pupils equal, conjunctiva normal, no discharge. [] Neck: Normal range of motion, no tenderness, supple, no stridor. [] Cardiovascular: Heart rate regular rhythm, no murmur [] Lungs & Thorax: Bilateral breath sounds clear to auscultation- resp. equal/nonlabored Abdomen: Bowel sounds normal, soft, no tenderness Skin: Warm, dry, no erythema, no rash. [] Back: No tenderness, full ROM Extremities: No cyanosis, no clubbing, ROM intact, no edema. 2+ bilat. dorsalis pedis/posterior tibial. No skin discoloration. Tender lt calf- no palp. mass. Full ROM of lt LE. Lt calf slightly larger than rt calf- no ankle/foot tenderness Neurologic: Alert and oriented X 3, normal motor function, normal sensory function, no focal deficits noted. [] Psychologic: Affect normal, judgement normal, mood normal. [] Current Patient Data Vital Signs Vital Signs Date Time Temp Pulse Resp B/P (MAP) Pulse Ox O2 Delivery O2 Flow Rate FiO2 03/10/19 14:44 77 18 183/106 (131) 98 Room Air 03/10/19 13:14 98.1 98.1 EKG EKG [] Radiology/Procedures Radiology/Procedures PROCEDURE: VENOUS LOWER EXTREMITY LEFT Left lower extremity venous doppler ultrasound History: Left leg swelling and calf pain Comparison: None Findings: Multiple grayscale, color, and duplex spectral analysis sonographic images were acquired of the left lower extremity veins to evaluate for the presence of DVT. There is normal phasicity. Normal compression, color-flow, and augmentation is demonstrated from the left common femoral to the popliteal veins. There is normal color flow of the proximal greater saphenous and profunda femoris veins. There is normal color flow of segments of the calf veins. Impression: 1. There is no evidence of deep venous thrombosis from the left common femoral to the popliteal veins. Electronically signed by: Alyx Cameron MD (03/10/2019 2:25 PM) [facility] DICTATED and SIGNED BY: ALYX CAMERON MD DATE: 03/10/19 1425 Course & Med Decision Making Course & Med Decision Making Pertinent Imaging studies reviewed. (See chart for details) 1430: Patient was evaluated in the ER for complaints of left lower extremity pain and swelling. Patient had ultrasound obtained with no acute findings. This was discussed with him along with plans for Jose wrap to calf and follow-up with his primary care physician and/or orthopedics. Patient remains PMS intact in left lower extremity and has had steady unassisted gait while in the ER. Patient advised on not place an Jose wrap on to tightly and to remove frequently. Education provided on signs and symptoms to return to ER. Discharge instructions were discussed. Dragon Disclaimer Dragon Disclaimer This electronic medical record was generated, in whole or in part, using a voice recognition dictation system. Departure Departure Impression: Primary Impression: Left leg pain Disposition: HOME, SELF-CARE Condition: STABLE Referrals: IVY ARAUZ MD (PCP) Patient Instructions: Elastic Bandage and RICE, Leg Cramps Additional Instructions: Tylenol and/or ibuprofen for pain as directed on container. Wear Jose wrap for 1- 2 days around calf to see if that improves pain while walking. Do not apply to tightly. Epsom salt soaks as directed on container. Follow-up with your primary doctor and/or an orthopedic doctor if symptoms persist or with concerns. BASIL WRAY APRN March 10, 2019 13:45
--- NOTE | 2019-03-10 14:28 | RAD ---
Left lower extremity venous doppler ultrasound History: Left leg swelling and calf pain Comparison: None Findings: Multiple grayscale, color, and duplex spectral analysis sonographic images were acquired of the left lower extremity veins to evaluate for the presence of DVT. There is normal phasicity. Normal compression, color-flow, and augmentation is demonstrated from the left common femoral to the popliteal veins. There is normal color flow of the proximal greater saphenous and profunda femoris veins. There is normal color flow of segments of the calf veins. Impression: 1. There is no evidence of deep venous thrombosis from the left common femoral to the popliteal veins. Electronically signed by: Ryan Sparrow MD (03/10/2019 2:25 PM) [facility]
[2019-03-10 14:44] VITALS: BP 183/106
== END 2019-03-10 14:46 | disposition home or self-care (01) ==
LOC: ER 12:54
DX: M79.662 Pain in left lower leg (principal); I10 Essential (primary) hypertension
CPT/HCPCS: 93971; 99284

== ENCOUNTER 2019-09-25 00:45 | Emergency (ER) | payer BC ==
[~2019-09-25] VITALS: Ht 182.9 cm; Wt 131.5 kg
[2019-09-25 00:59] VITALS: BP 159/106
== END 2019-09-25 04:30 | disposition left against medical advice (07) ==
LOC: ER 00:45
DX: R10.11 Right upper quadrant pain (principal); R10.12 Left upper quadrant pain; Z53.21 Procedure and treatment not carried out due to patient leaving prior to being seen by health care provider